=== PATIENT | male | born 1945 | race Caucasian/White ===

== ENCOUNTER 2022-02-10 16:06 | Inpatient (IN) | payer MEDICARE, SELFPAY ==
--- NOTE | ~2022-02-10 | XR_ITS ---
EXAMINATION: XR chest 1V portable INDICATION: Weakness, history of hypertension TECHNIQUE: Portable AP chest at 1926 hours COMPARISON: 11/30/2015 FINDINGS: The lungs are free of acute opacities. No pleural effusion or pneumothorax. Cardiomegaly is noted. Median sternotomy wires are consistent with prior cardiac surgery. Coronary artery stents are noted. IMPRESSION: 1. No acute cardiopulmonary abnormality. Reviewed, dictated and finalized at location F.
--- NOTE | ~2022-02-10 | US_ITS ---
EXAMINATION: US renal BI, US retroperitoneal duplex ltd DATE: 02/14/2022 15:03 INDICATION: Acute renal insufficiency. Hypotension. TECHNIQUE: 1. Multiple grayscale and color Doppler images of the kidneys were obtained. 2. Multiple grayscale and pulsed Doppler images of the aorta and renal arteries were obtained. COMPARISON: None. FINDINGS: Kidneys: The right kidney measures 11.1 x 5.6 x 4.7 cm. The left kidney measures 10.5 x 4.1 x 5.4 cm. The kidn eys demonstrate normal echogenicity. There is no hydronephrosis in either kidney. No stones identifi ed. The bladder appears normal but is partially decompressed which limits evaluation. Renal arteries/vascular: Cardiac arrhythmia with irregular rhythm and bradycardia. The aorta peak systolic velocity is 69 cm/s . The right renal artery peak systolic velocity is 129 cm/s in the proximal segment, 147 cm/s in the mid segment, and 100 cm/s in the distal segment. The left renal artery peak systolic velocity is 113 cm/s in the proximal segment, 103 cm/s in the mid segment, and 91 cm/s in the distal segment. IMPRESSION: 1. Normal kidneys with no hydronephrosis. 2. No Doppler evidence of renal artery stenosis. Reviewed, dictated and finalized at location A. IMPRESSION: 1. Normal kidneys with no hydronephrosis. 2. No Doppler evidence of renal artery stenosis.
[2022-02-10 16:15] VITALS: BP 132/62; PULSE 67; RESP 16; TEMP 37.3; O2SAT 96
--- NOTE | 2022-02-10 19:18 | ECG_ITS ---
Measurements Intervals [place] Rate: 66 P: 64 VA: 179 QRS: 40 QRSD: 90 T: 56 QT: 391 QTc: 410 Interpretive Statements SINUS RHYTHM WITH SINUS ARRHYTHMIA BORDERLINE ST-T WAVE ABNORMALITY- HIGH LATERAL LEADS BASELINE ARTIFACT- I, II, III, AVR, AVL, AVF, V1-V3 BORDERLINE ECG Electronically Signed On 02-10-2022 20:01:26 CDT by Flaco Swain D.O.
[2022-02-10 20:04] LABS: Basophils Percent Auto 0.2 % (0.2-1.2); Eosinophils Percent Auto 0.2 % (0-4.4); Immature Granulocyte Absolute 0.02 K/mm3 (0.00-0.031); Immature Granulocyte Percent A 0.4 % (0-0.5); Immature Platelet Fraction Pct 4.2 % (0.9-11.2); Lymphocytes Absolute Auto 0.55 K/mm3 (0.9-3.2); Lymphocytes Percent Auto 11.1 % (18.3-44.2); Mean Corpuscular HGB Conc 33.3 g/dl (32-36); Mean Corpuscular Hemoglobin 28.2 pg (26-34); Mean Corpuscular Volume 84.7 fl (80-100); Mean Platelet Volume 10.4 fl (7.4-10.4); Monocytes Absolute Auto 0.7 K/mm3 (0.1-0.6); Monocytes Percent Auto 14.5 % (2.6-8.5); Neutrophils Absolute Auto 3.7 K/mm3 (1.3-6.7); Neutrophils Percent Auto 73.6 % (45.5-73.1); Platelet Count Result 124 k/mm3 (150-375); Red Blood Count 4.25 M/mm3 (4.6-6.20); Red Cell Distribution Width 14.2 % (11.5-14.5)
[2022-02-10 20:04] LABS: Appearance Urine Clear (Clear); Bilirubin Urine 1+ (Negative); Blood Urine Trace-lysed (Negative); Color Urine Yellow (Yellow); Glucose Urine UA 2+ mg/dL (Negative); Ketones Urine Trace mg/dL (Negative); Leukocyte Esterase Ur Negative LEU/UL (Negative); Nitrate Urine Negative (Negative); Protein Urine 3+ mg/dL (Negative); Specific Grav Ur >= 1.030 (1.001-1.035); Urobilinogen Urine 0.2 mg/dL (<2.0)
[2022-02-10] MEDS: ONDANSETRON INJ 4 MG/2 ML VIAL IV PUSH (20:12)
[2022-02-10] MEDS: SODIUM CHLORIDE 0.9% IV 1,000 ML 999 ML IV CONT (20:12)
[2022-02-10 20:13] LABS: Lactic Acid Reflex 3.9 mmol/L (0.7-2.0)
[2022-02-10 20:14] LABS: Alanine Aminotransferase 14 U/L (6-50); Albumin Level 4.7 g/dL (3.5-5.1); Alkaline Phosphatase 67 U/L (38-126); Anion Gap 12 mmol/L (8-16); Aspartate Amino Transferase 19 U/L (17-59); Bilirubin,Total 0.8 mg/dL (0.2-1.3); Blood Urea Nitrogen 18 mg/dL (9-20); Calcium 9.9 mg/dL (8.4-10.2); Carbon Dioxide 23 mmol/L (22-30); Chloride 100 mmol/L (98-107); Estimated CRCL calculation 36 ml/min; Estimated Glomerular Filt Rate 49; Glucose 235 mg/dL (65-110); Potassium 4.7 mmol/L (3.4-5.0); Sodium 135 mmol/L (137-145)
[2022-02-10 20:15] VITALS: BP 131/61; PULSE 70; RESP 14; O2SAT 95
[2022-02-10 20:17] LABS: Mucus Urine Rare /lpf; RBC Urine 0-2 /hpf (0-2); WBC Urine 0-3 /hpf
[2022-02-10 20:26] LABS: Troponin I < 0.012 ng/mL (0.000-0.034)
[2022-02-10 20:34] LABS: Add Urine Microscopic? YES
[2022-02-10 20:39] LABS: SARS-CoV-2 RNA PCR Positive
[2022-02-10 20:54] VITALS: BP 127/71; PULSE 64; RESP 18; O2SAT 97
--- NOTE | 2022-02-10 20:55 | ED.WEAKNESS ---
HPI - Weakness General Chief complaint: Weakness Stated complaint: weakness Time Seen by Provider: 02/10/22 19:18 History of Present Illness HPI Narrative: 76-year-old male chronic with history of diabetes and high blood pressure presents here with several days of nausea, vomiting, and generalized weakness, there are multiple members in the house that tested positive for COVID 4 days ago. He is endorsing some chills, no chest pain or difficulty breathing or cough. He has not taken any medications other than what he is prescribed. Some very minimal abdominal pain with nausea but much better now. He is not vaccinated. Related Data Home Medications Medication Instructions Recorded Confirmed famotidine 20 mg tablet 08/08/19 glipizide 10 mg tablet mg 08/08/19 lisinopril 20 mg tablet 08/08/19 metformin 500 mg tablet mg 08/08/19 simvastatin 20 mg tablet mg 08/08/19 Allergies Allergy/AdvReac Type Severity Reaction Status Date / Time No Known Allergies Allergy Unverified 02/10/22 20:10 Review of Systems Review of Systems: CONST: Chills and weakness HEENT: No sore throat C/V: No chest pain RESP: No cough GI: Reports abdominal pain, nausea, vomiting : No dysuria. M/S: No joint pain. SKIN: No rash. NEURO: [No headache or focal numbness or weakness] PSYCH: [No depression] FOR[facility]LY [facility], [facility] Past Medical History Medical History Arthritis Bilateral cataracts CAD (coronary artery disease) Cholelithiasis Diabetes mellitus HLD (hyperlipidemia) HTN (hypertension) Kidney stones Surgical History Surgical History H/O cardiac catheterization H/O colonoscopy History of extraction of renal calculus Hx of CABG Family History Family History Sibling Family history of lung disease, Onset Age: 62 Family history of heart disease in male family member before age 55 Patient's brother is Mother Family history of heart disease in male family member before age 55, Onset Age: 69 Patient's mother is Father Patient's father is Other Diabetes mellitus Social History Social History Smoking status: Never smoker Alcohol intake: current Exam Narrative: EXAMINATION OF ORGAN SYSTEMS/BODY AREAS: Constitutional: Vital signs per nursing GENERAL:[No acute distress, non-toxic appearing.] HEAD: Normal with no signs of head trauma. EYES: EOMI, conjunctiva normal ENT: Hard of hearing LUNGS: Nonlabored breathing. HEART: [Regular rate and rhythm] ABD: [Soft], [nontender to palpation] EXT: Normal range of motion SKIN: [No rashes or lesions.] NEURO: [Alert and oriented x 3. No gross focal sensory or strength deficits.] PSYCH: Normal affect Course Vital Signs Vital signs: Vital Signs Temperature 99.2 F 02/10/22 16:15 Pulse Rate 67 02/10/22 16:15 Respiratory Rate 16 02/10/22 16:15 Blood Pressure 132/62 02/10/22 16:15 Pulse Oximetry 96 02/10/22 16:15 Oxygen Delivery Room Air 02/10/22 16:15 Temperature 99.2 F 02/10/22 16:15 Pulse Rate 64 02/10/22 22:01 Respiratory Rate 18 02/10/22 22:01 Blood Pressure 137/57 L 02/10/22 22:01 Pulse Oximetry 95 02/10/22 22:01 Oxygen Delivery Room Air 02/10/22 16:15 MDM - Weakness MDM Narrative Medical decision making narrative: 76-year-old male presenting with generalized weakness, with multiple sick contacts with COVID, vital signs stable here, exam shows soft nontender abdomen, well-appearing patient with non labored respirations, no focal neurologic deficits, I suspect likely COVID or other infectious etiology, along with possible dehydration, doubt any acute intra-abdominal surgical emergency given his soft and nontender abdomen. Labs notable for elevated lactate, patient started on
--- NOTE | 2022-02-10 21:06 | PM.IMHP ---
H&P: HPI History of Present Illness Date/Time: 02/10/22 21:06 Chief Complaint: Dizziness. Narrative: This is a 76-year-old male with past medical history significant for arthritis, coronary artery disease, diabetes mellitus, dyslipidemia, hypertension. Patient is brought to the emergency room by his son due to dizziness, nausea, vomiting, generalized malaise, muscle aches and pains, for the last 2 days or so. Several members of the family have tested positive for COVID. Patient has not been able to eat all day today, has been staying in bed most of the day as well. Patient was in his usual state of health up until this. Preliminary workup was significant for lactic acid of 3.9, patient tested positive for COVID as well. Patient has been admitted for further evaluation management and treatment. Review of Systems Review of Systems: Body aches and pains, nausea, vomiting, poor appetite, generalized malaise. Constitutional: Constitutional: Reports body ache(s), Reports chills, Reports fever(s), Reports lethargy, Reports malaise, Denies night sweats, Reports poor appetite and Reports weakness Eyes: Eyes: Denies change in vision ENT: Denies dysphagia, Reports dizziness and Denies odynophagia Cardiovascular: Cardiovascular: Denies syncope, Denies pedal edema, Denies irregular heart rhythm, Denies leg ulcers, Denies lightheadedness, Denies radiating jaw, neck or arm pain, Denies palpitations, Denies dyspnea, Denies dyspnea on exertion and Denies paroxysmal nocturnal dyspnea Respiratory: Respiratory: Denies chest congestion, Denies cough, Denies excessive phlegm production and Denies dyspnea Gastrointestinal: Gastrointestinal: Denies abdominal pain, Denies dyspepsia, Denies heartburn, Reports nausea and Reports vomiting Genitourinary: Genitourinary: Denies dysuria Musculoskeletal: Musculoskeletal: Reports myalgias Integumentary/Breasts: Skin/Breast: Denies rash Neurologic: Denies focal weakness and Denies Sensory deficit (Neuro) Psychiatric: Psychiatric: Reports no additional psychiatric complaints and Reports as per HPI Endocrine: Endocrine: Denies cold intolerance, Denies fatigue, Denies flushing, Denies heat intolerance, Denies polyphagia and Denies polydipsia Hematologic/Lymphatic: Hematologic/Lymphatic: Reports no additional hematologic/lymphatic complaints and Reports as per HPI Allergic/Immunologic: Allergic/Immunologic: Reports no additional allergic/immunologic complaints and Reports as per [facility] Past Medical History Medical History (Updated 02/11/22 @ 01:36 by Jorge Gerber MD) Arthritis Bilateral cataracts CAD (coronary artery disease) Cholelithiasis Diabetes mellitus HLD (hyperlipidemia) HTN (hypertension) Kidney stones Surgical History Surgical History H/O cardiac catheterization H/O colonoscopy History of extraction of renal calculus Hx of CABG Family History Family History Sibling Family history of lung disease, Onset Age: 62 Family history of heart disease in male family member before age 55 Patient's brother is Mother Family history of heart disease in male family member before age 55, Onset Age: 69 Patient's mother is Father Patient's father is Other Diabetes mellitus Social History Social History Smoking status: Never smoker Alcohol intake: never Substance use: never Substance use type: does not use Spiritual care concerns: No Meds Home Medications and Allergies Home Medications Medication Instructions Recorded Confirmed Type famotidine 20 mg tablet 08/08/19 History lisinopril 20 mg tablet 08/08/19 History metformin 500 mg tablet mg 08/08/19 History simvastatin 20 mg tablet mg 08/08/19 History aspirin 81 mg tablet 81 mg PO QAM 02/10/22
[2022-02-10 22:01] VITALS: BP 137/57; PULSE 64; RESP 18; O2SAT 95
[2022-02-10] MEDS: LACTATED RINGERS 1,000 ML 999 ML IV CONT (22:38)
[2022-02-10 23:00] LABS: Reflex Lactic Acid Yes or No Add Lactic
--- NOTE | 2022-02-10 23:17 | ADMGEN ---
This patient, Dre Durham, was admitted to 2 Medical Room 260-01. Patient/family oriented to hospital policies and general routines including ID bracelet, bed and alarms, visiting hours, pain management, procedures, bathroom and other care routines, personal items, smoking policy, room service/diet, and visiting hours. Information on how to activate the Rapid Response Team has been discussed. Patient/Family are encouraged to report perceived risks to care and to ask questions if they do not understand what they are told or what they should do.
[2022-02-10 23:28] VITALS: BP 132/60; PULSE 75; RESP 16; TEMP 37.2; O2SAT 98; BMI 23.4
[2022-02-11 00:20] LABS: Lactic Acid 2.2 mmol/L (0.7-2.0)
[2022-02-11 03:41] VITALS: BP 129/53; PULSE 70; RESP 16; TEMP 37.3; O2SAT 93
[2022-02-11 07:45] LABS: Glucose Point of Care 145 mg/dl (65-105)
[2022-02-11] MEDS: OMEGA 3 POLYUNSAT FATTY ACIDS 1 GM CAP PO (09:40)
[2022-02-11] MEDS: ENOXAPARIN 40 MG/0.4 ML SYRINGE SUB-Q (09:41)
[2022-02-11] MEDS: lisinopriL 20 MG TABLET PO (09:41)
[2022-02-11] MEDS: ASPIRIN 81 MG CHEWABLE TABLET PO (09:41)
[2022-02-11] MEDS: FAMOTIDINE 20 MG TABLET PO ×2 (09:41→18:31)
[2022-02-11 11:52] LABS: Glucose Point of Care 235 mg/dl (65-105)
--- NOTE | 2022-02-11 12:00 | P.PNIM_ITS ---
Progress Note: A&P Assessment and Plan (1) COVID-19: Code(s): U07.1 - COVID-19 Status: Acute Assessment and Plan: * Covid positive per labs today * Many sick contacts over the last week * Chest xray shows no acute cardiopulmonary process * Isolation * Trend fluid status * Currently no respiratory symptoms * Place in observation status * Supportive care (2) SANCHO (acute kidney injury): Code(s): N17.9 - Acute kidney failure, unspecified Status: Acute Assessment and Plan: * Current BUN/Cr 18/1.40 * Unknown baseline * Probably related to vomiting * Trend labs * Avoid nephrotoxic medication * IV fluids for hydration given in the ED * Hold off on any further fluids, not wanting to over hydrate (3) Acidosis, lactic: Code(s): E87.2 - Acidosis Status: Acute Assessment and Plan: * Lactic acidosis noted with a lactic acid of 3.9 * Currently 2.2 * LR x 2 in the ED * Probably related to COVID infection, dehydration (4) CAD (coronary artery disease): Code(s): I25.10 - Atherosclerotic heart disease of [place] coronary artery without angina pectoris Status: Acute Assessment and Plan: * Chest pain-free * Continue home meds aspirin, simvastatin (5) HTN (hypertension): Code(s): I10 - Essential (primary) hypertension Status: Acute Assessment and Plan: * Current BP is 129/53 * Continue home meds lisinopril 20mg PO Daily * Trend Blood pressure * adjust therapy as indicated (6) Nausea and vomiting: Code(s): R11.2 - Nausea with vomiting, unspecified Status: Acute Assessment and Plan: * Likely secondary to viral illness * Supportive care (7) Diabetes: Code(s): E11.9 - Type 2 diabetes mellitus without complications Status: Acute Assessment and Plan: * Current glucose is 235 * Check A1c * Trend glucose * Adjust therapy as indicated * accu cheks ac/hs * ISS * hypoglycemic protocol Time Spent With Patient Time with patient: Greater than 35 minutes Subjective Date/time seen: 02/11/22 1200 Interval history: 02/11/221199 Patient was sitting in the chair. Patient stated that he did eat and he feels a lot better today. He is also urinating okay he does say he gets short of breath with walking and goes away slowly however he does not have much distress. He is walking around said he is still using a walker and he is very weak still. He denies any chest pain, nausea, vomiting, diarrhea, constipation, fatigue. Patient also stated that he got COVID vaccinated the however he is unaware of how many shots he got or what shots he got. 02/10/22? 21:06 This is a 76-year-old male with past medical history significant for arthritis, coronary artery disease, diabetes mellitus, dyslipidemia, hypertension.? Patient is brought to the emergency room by his son due to dizziness, nausea, vomiting, generalized malaise, muscle aches and pains, for the last 2 days or so.? Several members of the family have tested positive for COVID.? Patient has not been able to eat all day today, has been staying in bed most of the day as well.? Patient was in his usual state of health up until this.? Preliminary workup was significant for lactic acid of 3.9, patient tested positive for COVID as well.? Patient has been admitted for further evaluation management and t
--- NOTE | 2022-02-11 12:00 | PM.IMPN ---
Progress Note: A&P Assessment and Plan (1) COVID-19: Code(s): U07.1 - COVID-19 Status: Acute Assessment and Plan: Covid positive per labs today Many sick contacts over the last week Chest xray shows no acute cardiopulmonary process Isolation Trend fluid status Currently no respiratory symptoms Place in observation status Supportive care (2) SANCHO (acute kidney injury): Code(s): N17.9 - Acute kidney failure, unspecified Status: Acute Assessment and Plan: Current BUN/Cr 18/1.40 Unknown baseline Probably related to vomiting Trend labs Avoid nephrotoxic medication IV fluids for hydration given in the ED Hold off on any further fluids, not wanting to over hydrate (3) Acidosis, lactic: Code(s): E87.2 - Acidosis Status: Acute Assessment and Plan: Lactic acidosis noted with a lactic acid of 3.9 Currently 2.2 LR x 2 in the ED Probably related to COVID infection, dehydration (4) CAD (coronary artery disease): Code(s): I25.10 - Atherosclerotic heart disease of [place] coronary artery without angina pectoris Status: Acute Assessment and Plan: Chest pain-free Continue home meds aspirin, simvastatin (5) HTN (hypertension): Code(s): I10 - Essential (primary) hypertension Status: Acute Assessment and Plan: Current BP is 129/53 Continue home meds lisinopril 20mg PO Daily Trend Blood pressure adjust therapy as indicated (6) Nausea and vomiting: Code(s): R11.2 - Nausea with vomiting, unspecified Status: Acute Assessment and Plan: Likely secondary to viral illness Supportive care (7) Diabetes: Code(s): E11.9 - Type 2 diabetes mellitus without complications Status: Acute Assessment and Plan: Current glucose is 235 Check A1c Trend glucose Adjust therapy as indicated accu cheks ac/hs ISS hypoglycemic protocol Time Spent With Patient Time with patient: Greater than 35 minutes Subjective Date/time seen: 02/11/22 1200 Interval history: 02/11/22 1200 Patient was sitting in the chair. Patient stated that he did eat and he feels a lot better today. He is also urinating okay he does say he gets short of breath with walking and goes away slowly however he does not have much distress. He is walking around said he is still using a walker and he is very weak still. He denies any chest pain, nausea, vomiting, diarrhea, constipation, fatigue. Patient also stated that he got COVID vaccinated the however he is unaware of how many shots he got or what shots he got. 02/10/22? 21:06 This is a 76-year-old male with past medical history significant for arthritis, coronary artery disease, diabetes mellitus, dyslipidemia, hypertension.? Patient is brought to the emergency room by his son due to dizziness, nausea, vomiting, generalized malaise, muscle aches and pains, for the last 2 days or so.? Several members of the family have tested positive for COVID.? Patient has not been able to eat all day today, has been staying in bed most of the day as well.? Patient was in his usual state of health up until this.? Preliminary workup was significant for lactic acid of 3.9, patient tested positive for COVID as well.? Patient has been admitted for further evaluation management and treatment. Exam Const: General: comfortable, no acute distress, well developed, alert and awake Nutritional Appearance: average body habitus Orientation/consciousness: patient oriented x3 HENMT: Head: normal to inspection, normocephalic and atraumatic Ears: hearing grossly normal bilaterally Face and sinus: normal facial exam Eyes: General: appearance normal, both eyes and all related structures Pupils: Equal, round and reactive pupils present EOM: EOMs intact bilaterally Neck: Neck: full ROM, no lymphadenopathy and no JVD Thyroid: t
[2022-02-11] MEDS: INSULIN ASPART (*BKC) 100 UNITS/ML SUB-Q (12:28)
[2022-02-11 14:00] VITALS: BP 127/53; PULSE 60; RESP 16; TEMP 37.5; O2SAT 95
[2022-02-11 16:32] LABS: Glucose Point of Care 119 mg/dl (65-105)
[2022-02-11] MEDS: CITALOPRAM HYDROBROMIDE 20 MG TABLET PO (18:31)
[2022-02-11] MEDS: SIMVASTATIN 20 MG TABLET PO (18:32)
[2022-02-11 20:14] VITALS: BP 119/56; PULSE 81; RESP 16; TEMP 37.4; O2SAT 97
[2022-02-11 23:51] LABS: Glucose Point of Care 134 mg/dl (65-105)
[2022-02-12 05:38] VITALS: BP 117/57; PULSE 42; RESP 16; TEMP 37.2; O2SAT 99
[2022-02-12 05:51] LABS: Immature Platelet Fraction Pct 4.6 % (0.9-11.2); Mean Corpuscular HGB Conc 34.4 g/dl (32-36); Mean Corpuscular Hemoglobin 28.4 pg (26-34); Mean Corpuscular Volume 82.5 fl (80-100); Platelet Count Result 91 k/mm3 (150-375); Red Blood Count 3.88 M/mm3 (4.6-6.20); Red Cell Distribution Width 13.7 % (11.5-14.5); White Blood Count 3.4 K/mm3 (4.5-10.0)
[2022-02-12 06:04] LABS: Alanine Aminotransferase 9 U/L (6-50); Albumin Level 3.5 g/dL (3.5-5.1); Alkaline Phosphatase 54 U/L (38-126); Anion Gap 2 mmol/L (8-16); Aspartate Amino Transferase 23 U/L (17-59); Bilirubin,Total 0.6 mg/dL (0.2-1.3); Blood Urea Nitrogen 19 mg/dL (9-20); Carbon Dioxide 31 mmol/L (22-30); Chloride 101 mmol/L (98-107); Estimated CRCL calculation 32 ml/min; Estimated Glomerular Filt Rate 42; Glucose 111 mg/dL (65-110); Sodium 134 mmol/L (137-145)
[2022-02-12 07:48] LABS: Glucose Point of Care 120 mg/dl (65-105)
[2022-02-12 08:12] LABS: Band Neutrophils Percent 8 % (0-6); Lymphocytes Absolute Manual 1.22 K/mm3 (1.1-4.5); Monocytes Absolute Manual 0.47 K/mm3 (0.1-0.90); Monocytes Percent Manual 14 % (3-9); Neutrophils Percent Manual 42 % (46-73); Platelet Estimate Decreased (Adequate); Total Cells Counted 100
[2022-02-12] MEDS: FAMOTIDINE 20 MG TABLET PO ×2 (09:22→17:32)
[2022-02-12] MEDS: OMEGA 3 POLYUNSAT FATTY ACIDS 1 GM CAP PO (09:22)
[2022-02-12] MEDS: ASPIRIN 81 MG CHEWABLE TABLET PO (09:22)
[2022-02-12] MEDS: lisinopriL 20 MG TABLET PO (09:22)
[2022-02-12] MEDS: ENOXAPARIN 40 MG/0.4 ML SYRINGE SUB-Q (09:23)
--- NOTE | 2022-02-12 10:18 | P.PNIM_ITS ---
Progress Note: A&P Assessment and Plan (1) COVID-19: Code(s): U07.1 - COVID-19 Status: Acute Assessment and Plan: * Covid positive per labs today * Many sick contacts over the last week * Chest xray shows no acute cardiopulmonary process * Isolation * Trend fluid status * BNP ordered * Currently no respiratory symptoms * Place in observation status * Supportive care (2) SANCHO (acute kidney injury): Code(s): N17.9 - Acute kidney failure, unspecified Status: Acute Assessment and Plan: * Current BUN/Cr 19/1.60, getting worse, labs ordered for further investigation * Unknown baseline * Probably related to vomiting * BNP and urine studies ordered * Wonder if this is fluid overload * Trend labs * Avoid nephrotoxic medication * Hold off on any further fluids, not wanting to over hydrate (3) Thrombocytopenia: Code(s): D69.6 - Thrombocytopenia, unspecified Status: Acute Assessment and Plan: * PLTs at 91 today * 40% drop * Stopped lovenox * HIT labs ordered * Trend labs (4) Acidosis, lactic: Code(s): E87.2 - Acidosis Status: Acute Assessment and Plan: * Lactic acidosis noted with a lactic acid of 3.9 * Currently 2.2 * LR x 2 in the ED * Probably related to COVID infection, dehydration (5) CAD (coronary artery disease): Code(s): I25.10 - Atherosclerotic heart disease of [place] coronary artery without angina pectoris Status: Acute Assessment and Plan: * Chest pain-free * Continue home meds aspirin, simvastatin (6) HTN (hypertension): Code(s): I10 - Essential (primary) hypertension Status: Acute Assessment and Plan: * Current BP is 117/57 * Continue home meds lisinopril 20mg PO Daily * Trend Blood pressure * adjust therapy as indicated (7) Nausea and vomiting: Code(s): R11.2 - Nausea with vomiting, unspecified Status: Acute Assessment and Plan: * Likely secondary to viral illness * Supportive care (8) Diabetes: Code(s): E11.9 - Type 2 diabetes mellitus without complications Status: Acute Assessment and Plan: * Current glucose is 111 * Check A1c * Trend glucose * Adjust therapy as indicated * accu cheks ac/hs * ISS * hypoglycemic protocol Time Spent With Patient Time with patient: Greater than 35 minutes Subjective Date/time seen: 02/12/22 10:18 Interval history: 02/12/22 1015 Patient seems to be doing okay. He denies any shortness of breath or chest pain. However renal function is getting worse and his platelets have dropped to 91. He denies any nausea vomiting, diarrhea, constipation, urgency or frequency. Labs are pending for renal function and possible hit. 02/11/22 1200 Patient was sitting in the chair. Patient stated that he did eat and he feels a lot better today. He is also urinating okay he does say he gets short of breath with walking and goes away slowly however he does not have much distress. He is walking around said he is still using a walker and he is very weak still. He denies any chest pain, nausea, vomiting, diarrhea, constipation, fatigue. Patient also stated that he got COVID vaccinated the however he is unaware of how many shots he got or what shots he got. 02/10/22? 21:06
--- NOTE | 2022-02-12 10:18 | PM.IMPN ---
Progress Note: A&P Assessment and Plan (1) COVID-19: Code(s): U07.1 - COVID-19 Status: Acute Assessment and Plan: Covid positive per labs today Many sick contacts over the last week Chest xray shows no acute cardiopulmonary process Isolation Trend fluid status BNP ordered Currently no respiratory symptoms Place in observation status Supportive care (2) SANCHO (acute kidney injury): Code(s): N17.9 - Acute kidney failure, unspecified Status: Acute Assessment and Plan: Current BUN/Cr 19/1.60, getting worse, labs ordered for further investigation Unknown baseline Probably related to vomiting BNP and urine studies ordered Wonder if this is fluid overload Trend labs Avoid nephrotoxic medication Hold off on any further fluids, not wanting to over hydrate (3) Thrombocytopenia: Code(s): D69.6 - Thrombocytopenia, unspecified Status: Acute Assessment and Plan: PLTs at 91 today 40% drop Stopped lovenox HIT labs ordered Trend labs (4) Acidosis, lactic: Code(s): E87.2 - Acidosis Status: Acute Assessment and Plan: Lactic acidosis noted with a lactic acid of 3.9 Currently 2.2 LR x 2 in the ED Probably related to COVID infection, dehydration (5) CAD (coronary artery disease): Code(s): I25.10 - Atherosclerotic heart disease of [place] coronary artery without angina pectoris Status: Acute Assessment and Plan: Chest pain-free Continue home meds aspirin, simvastatin (6) HTN (hypertension): Code(s): I10 - Essential (primary) hypertension Status: Acute Assessment and Plan: Current BP is 117/57 Continue home meds lisinopril 20mg PO Daily Trend Blood pressure adjust therapy as indicated (7) Nausea and vomiting: Code(s): R11.2 - Nausea with vomiting, unspecified Status: Acute Assessment and Plan: Likely secondary to viral illness Supportive care (8) Diabetes: Code(s): E11.9 - Type 2 diabetes mellitus without complications Status: Acute Assessment and Plan: Current glucose is 111 Check A1c Trend glucose Adjust therapy as indicated accu cheks ac/hs ISS hypoglycemic protocol Time Spent With Patient Time with patient: Greater than 35 minutes Subjective Date/time seen: 02/12/22 10:18 Interval history: 02/12/22 1015 Patient seems to be doing okay. He denies any shortness of breath or chest pain. However renal function is getting worse and his platelets have dropped to 91. He denies any nausea vomiting, diarrhea, constipation, urgency or frequency. Labs are pending for renal function and possible hit. 02/11/22 1200 Patient was sitting in the chair. Patient stated that he did eat and he feels a lot better today. He is also urinating okay he does say he gets short of breath with walking and goes away slowly however he does not have much distress. He is walking around said he is still using a walker and he is very weak still. He denies any chest pain, nausea, vomiting, diarrhea, constipation, fatigue. Patient also stated that he got COVID vaccinated the however he is unaware of how many shots he got or what shots he got. 02/10/22? 21:06 This is a 76-year-old male with past medical history significant for arthritis, coronary artery disease, diabetes mellitus, dyslipidemia, hypertension.? Patient is brought to the emergency room by his son due to dizziness, nausea, vomiting, generalized malaise, muscle aches and pains, for the last 2 days or so.? Several members of the family have tested positive for COVID.? Patient has not been able to eat all day today, has been staying in bed most of the day as well.? Patient was in his usual state of health up until this.? Preliminary workup was significant for lactic acid of 3.9, patient tested positive for COVID as
[2022-02-12 10:51] LABS: Hemoglobin A1C 7.1 % (<5.7)
[2022-02-12 10:58] LABS: NT Pro B Type Natriuretic Pept 800 pg/mL (5-100)
[2022-02-12 11:38] LABS: Glucose Point of Care 190 mg/dl (65-105)
[2022-02-12 12:59] LABS: Creatinine Urine 69.7 mg/dL; Urea Random Urine 320 MG/DL
[2022-02-12 13:04] LABS: Sodium Urine Random 59 meq/L
[2022-02-12] MEDS: FUROSEMIDE INJ 40 MG/4 ML VIAL IV PUSH (13:17)
[2022-02-12 14:00] VITALS: BP 123/68; PULSE 51; RESP 16; TEMP 36.9; O2SAT 95
[2022-02-12 16:47] LABS: Glucose Point of Care 164 mg/dl (65-105)
[2022-02-12] MEDS: CITALOPRAM HYDROBROMIDE 20 MG TABLET PO (17:32)
[2022-02-12] MEDS: SIMVASTATIN 20 MG TABLET PO (17:33)
[2022-02-12 19:34] VITALS: BP 124/61; PULSE 65; RESP 19; TEMP 36.9; O2SAT 100
[2022-02-12 21:48] LABS: Glucose Point of Care 187 mg/dl (65-105)
[2022-02-13 03:52] VITALS: BP 114/46; PULSE 58; RESP 18; TEMP 36.9; O2SAT 97
[2022-02-13 05:49] LABS: Basophils Percent Auto 0.3 % (0.2-1.2); Eosinophils Absolute Auto 0.2 K/mm3 (0-0.3); Eosinophils Percent Auto 4.9 % (0-4.4); Hematocrit 34.1 % (42.0-52.0); Hemoglobin 12.1 g/dL (14.0-18.0); Immature Granulocyte Absolute 0.01 K/mm3 (0.00-0.031); Immature Granulocyte Percent A 0.3 % (0-0.5); Lymphocytes Absolute Auto 1.26 K/mm3 (0.9-3.2); Lymphocytes Percent Auto 41.2 % (18.3-44.2); Mean Corpuscular HGB Conc 35.5 g/dl (32-36); Mean Corpuscular Hemoglobin 28.6 pg (26-34); Mean Corpuscular Volume 80.6 fl (80-100); Mean Platelet Volume 10.5 fl (7.4-10.4); Monocytes Absolute Auto 0.5 K/mm3 (0.1-0.6); Neutrophils Absolute Auto 1.1 K/mm3 (1.3-6.7); Neutrophils Percent Auto 37.3 % (45.5-73.1); Platelet Count Result 100 k/mm3 (150-375); Red Blood Count 4.23 M/mm3 (4.6-6.20); Red Cell Distribution Width 13.6 % (11.5-14.5); White Blood Count 3.1 K/mm3 (4.5-10.0)
[2022-02-13 06:01] LABS: Alanine Aminotransferase 11 U/L (6-50); Albumin Level 3.9 g/dL (3.5-5.1); Alkaline Phosphatase 56 U/L (38-126); Anion Gap 4 mmol/L (8-16); Aspartate Amino Transferase 26 U/L (17-59); Bilirubin,Total 0.7 mg/dL (0.2-1.3); Blood Urea Nitrogen 23 mg/dL (9-20); Calcium 8.8 mg/dL (8.4-10.2); Carbon Dioxide 33 mmol/L (22-30); Chloride 97 mmol/L (98-107); Estimated CRCL calculation 32 ml/min; Estimated Glomerular Filt Rate 42; Glucose 137 mg/dL (65-110); Potassium 3.5 mmol/L (3.4-5.0); Sodium 134 mmol/L (137-145)
[2022-02-13] MEDS: MAGNESIUM SULF 4 GM/WATER100ML 4 GM/100 ML BAG IVPB (07:21)
--- NOTE | 2022-02-13 08:15 | P.PNIM_ITS ---
Progress Note: A&P Assessment and Plan (1) COVID-19: Code(s): U07.1 - COVID-19 Status: Acute Assessment and Plan: * Covid positive per labs today * Many sick contacts over the last week * Chest xray shows no acute cardiopulmonary process * Isolation * Trend fluid status * BNP 800 * Currently no respiratory symptoms * Place in observation status * Supportive care (2) SANCHO (acute kidney injury): Code(s): N17.9 - Acute kidney failure, unspecified Status: Acute Assessment and Plan: * Current BUN/Cr 23/1.60 Remains stable * baseline is truly unknown however taking a look back it does look like he is around 1.2-1.4 * BNP 800 * urine studies sodium of 52, urea 320, creatinine 69.7 * Fena Score is 1.0 * Renal ultrasound ordered to rule out obstruction, does seem to be more hypotensive since admission * IV fluids were given upon admission * Hold lisinopril due to worsening renal failure * Trend labs * Avoid nephrotoxic medication (3) Thrombocytopenia: Code(s): D69.6 - Thrombocytopenia, unspecified Status: Acute Assessment and Plan: * PLTs at 100 today * 40% drop * Stopped lovenox * HIT labs ordered and pending * Trend labs (4) Acidosis, lactic: Code(s): E87.2 - Acidosis Status: Acute Assessment and Plan: * Lactic acidosis noted with a lactic acid of 3.9 * Currently 2.2 * LR x 2 in the ED * Probably related to COVID infection, dehydration (5) CAD (coronary artery disease): Code(s): I25.10 - Atherosclerotic heart disease of [place] coronary artery without angina pectoris Status: Acute Assessment and Plan: * Chest pain-free * Continue home meds aspirin, simvastatin (6) HTN (hypertension): Code(s): I10 - Essential (primary) hypertension Status: Acute Assessment and Plan: * Current BP is 114/46 * Hold lisinopril 20mg PO Daily due to SANCHO * Trend Blood pressure * adjust therapy as indicated (7) Diabetes: Code(s): E11.9 - Type 2 diabetes mellitus without complications Status: Acute Assessment and Plan: * Current glucose is 137 * A1c 7.1 * Trend glucose * Adjust therapy as indicated * accu cheks ac/hs * ISS * hypoglycemic protocol Time Spent With Patient Time with patient: Greater than 35 minutes Subjective Date/time seen: 02/13/22 0815 Interval history: 02/13/22 0815 patient seems to be doing well today. Patient stated that he was eating and he is still very weak however he stated that it is getting better as well. He denies any chest pain, shortness of breath, nausea, vomiting, diarrhea, constipation. He did state that he was having headache and would like some Tylenol. Renal function is about the same however it seems like the patient might have some ATN that is causing his acute kidney injury. Called and updated his son. All questions were answered and plan of care was updated. 02/12/22 1015 Patient seems to be doing okay. He denies any shortness of breath or chest pain. However renal function is getting worse and his platelets have dropped to 91. He denies any nausea vomiting, diarrhea, constipation, urgency or frequency. Labs are pending for renal function and possible hit. 02/11/22 1200 Patient was sitting in the chair. Patient
--- NOTE | 2022-02-13 08:15 | PM.IMPN ---
Progress Note: A&P Assessment and Plan (1) COVID-19: Code(s): U07.1 - COVID-19 Status: Acute Assessment and Plan: Covid positive per labs today Many sick contacts over the last week Chest xray shows no acute cardiopulmonary process Isolation Trend fluid status BNP 800 Currently no respiratory symptoms Place in observation status Supportive care (2) SANCHO (acute kidney injury): Code(s): N17.9 - Acute kidney failure, unspecified Status: Acute Assessment and Plan: Current BUN/Cr 23/1.60 Remains stable baseline is truly unknown however taking a look back it does look like he is around 1.2-1.4 BNP 800 urine studies sodium of 52, urea 320, creatinine 69.7 Fena Score is 1.0 Renal ultrasound ordered to rule out obstruction, does seem to be more hypotensive since admission IV fluids were given upon admission Hold lisinopril due to worsening renal failure Trend labs Avoid nephrotoxic medication (3) Thrombocytopenia: Code(s): D69.6 - Thrombocytopenia, unspecified Status: Acute Assessment and Plan: PLTs at 100 today 40% drop Stopped lovenox HIT labs ordered and pending Trend labs (4) Acidosis, lactic: Code(s): E87.2 - Acidosis Status: Acute Assessment and Plan: Lactic acidosis noted with a lactic acid of 3.9 Currently 2.2 LR x 2 in the ED Probably related to COVID infection, dehydration (5) CAD (coronary artery disease): Code(s): I25.10 - Atherosclerotic heart disease of [place] coronary artery without angina pectoris Status: Acute Assessment and Plan: Chest pain-free Continue home meds aspirin, simvastatin (6) HTN (hypertension): Code(s): I10 - Essential (primary) hypertension Status: Acute Assessment and Plan: Current BP is 114/46 Hold lisinopril 20mg PO Daily due to SANCHO Trend Blood pressure adjust therapy as indicated (7) Diabetes: Code(s): E11.9 - Type 2 diabetes mellitus without complications Status: Acute Assessment and Plan: Current glucose is 137 A1c 7.1 Trend glucose Adjust therapy as indicated accu cheks ac/hs ISS hypoglycemic protocol Time Spent With Patient Time with patient: Greater than 35 minutes Subjective Date/time seen: 02/13/22814 Interval history: 02/13/22814 patient seems to be doing well today. Patient stated that he was eating and he is still very weak however he stated that it is getting better as well. He denies any chest pain, shortness of breath, nausea, vomiting, diarrhea, constipation. He did state that he was having headache and would like some Tylenol. Renal function is about the same however it seems like the patient might have some ATN that is causing his acute kidney injury. Called and updated his son. All questions were answered and plan of care was updated. 02/12/22 1015 Patient seems to be doing okay. He denies any shortness of breath or chest pain. However renal function is getting worse and his platelets have dropped to 91. He denies any nausea vomiting, diarrhea, constipation, urgency or frequency. Labs are pending for renal function and possible hit. 02/11/22 1200 Patient was sitting in the chair. Patient stated that he did eat and he feels a lot better today. He is also urinating okay he does say he gets short of breath with walking and goes away slowly however he does not have much distress. He is walking around said he is still using a walker and he is very weak still. He denies any chest pain, nausea, vomiting, diarrhea, constipation, fatigue. Patient also stated that he got COVID vaccinated the however he is unaware of how many shots he got or what shots he got. 02/10/22? 21:06 This is a 76-year-old male with past medical history significant for arthritis, coronary artery disease, diabetes [place]
[2022-02-13 08:33] LABS: Glucose Point of Care 145 mg/dl (65-105)
[2022-02-13] MEDS: ASPIRIN 81 MG CHEWABLE TABLET PO (09:50)
[2022-02-13] MEDS: FAMOTIDINE 20 MG TABLET PO ×2 (09:50→17:50)
[2022-02-13] MEDS: OMEGA 3 POLYUNSAT FATTY ACIDS 1 GM CAP PO (09:50)
[2022-02-13 11:56] LABS: Glucose Point of Care 288 mg/dl (65-105)
[2022-02-13] MEDS: ACETAMINOPHEN 500 MG TABLET 1000 MG PO (11:59)
[2022-02-13] MEDS: INSULIN ASPART (*BKC) 100 UNITS/ML SUB-Q (12:08)
[2022-02-13 14:00] VITALS: BP 128/56; PULSE 56; RESP 18; TEMP 36.4; O2SAT 97
[2022-02-13 16:34] LABS: Glucose Point of Care 170 mg/dl (65-105)
[2022-02-13] MEDS: CITALOPRAM HYDROBROMIDE 20 MG TABLET PO (17:50)
[2022-02-13] MEDS: SIMVASTATIN 20 MG TABLET PO (17:50)
[2022-02-13 20:22] LABS: Glucose Point of Care 247 mg/dl (65-105)
[2022-02-13 21:08] VITALS: BP 122/55; PULSE 50; RESP 18; TEMP 36.6; O2SAT 99
[2022-02-14 05:04] VITALS: BP 124/51; PULSE 62; RESP 18; TEMP 36.2; O2SAT 99
[2022-02-14 06:23] LABS: Basophils Percent Auto 0.3 % (0.2-1.2); Eosinophils Absolute Auto 0.2 K/mm3 (0-0.3); Eosinophils Percent Auto 6.4 % (0-4.4); Hematocrit 34.2 % (42.0-52.0); Hemoglobin 12.1 g/dL (14.0-18.0); Lymphocytes Absolute Auto 1.09 K/mm3 (0.9-3.2); Lymphocytes Percent Auto 36.7 % (18.3-44.2); Mean Corpuscular HGB Conc 35.4 g/dl (32-36); Mean Corpuscular Hemoglobin 28.7 pg (26-34); Mean Platelet Volume 10.3 fl (7.4-10.4); Monocytes Absolute Auto 0.4 K/mm3 (0.1-0.6); Monocytes Percent Auto 13.8 % (2.6-8.5); Neutrophils Absolute Auto 1.3 K/mm3 (1.3-6.7); Neutrophils Percent Auto 42.8 % (45.5-73.1); Platelet Count Result 109 k/mm3 (150-375); Red Blood Count 4.22 M/mm3 (4.6-6.20); Red Cell Distribution Width 13.6 % (11.5-14.5)
[2022-02-14 06:37] LABS: Alanine Aminotransferase 11 U/L (6-50); Albumin Level 3.7 g/dL (3.5-5.1); Alkaline Phosphatase 66 U/L (38-126); Anion Gap 5 mmol/L (8-16); Aspartate Amino Transferase 22 U/L (17-59); Bilirubin,Total 0.6 mg/dL (0.2-1.3); Blood Urea Nitrogen 28 mg/dL (9-20); Calcium 9.3 mg/dL (8.4-10.2); Carbon Dioxide 33 mmol/L (22-30); Chloride 97 mmol/L (98-107); Estimated CRCL calculation 30 ml/min; Estimated Glomerular Filt Rate 39; Glucose 168 mg/dL (65-110); Magnesium 1.8 mg/dL (1.6-2.3); Potassium 3.9 mmol/L (3.4-5.0); Sodium 135 mmol/L (137-145)
[2022-02-14 08:00] LABS: Glucose Point of Care 171 mg/dl (65-105)
[2022-02-14] MEDS: FAMOTIDINE 20 MG TABLET PO ×2 (09:25→17:03)
[2022-02-14] MEDS: OMEGA 3 POLYUNSAT FATTY ACIDS 1 GM CAP PO (09:26)
[2022-02-14] MEDS: ASPIRIN 81 MG CHEWABLE TABLET PO (09:26)
[2022-02-14] MEDS: LACTATED RINGERS 500 ML 999 ML IV CONT (09:26)
[2022-02-14 12:05] LABS: Glucose Point of Care 190 mg/dl (65-105)
--- NOTE | 2022-02-14 13:15 | PM.IMPN ---
Progress Note: A&P Assessment and Plan (1) COVID-19: Code(s): U07.1 - COVID-19 Status: Acute Assessment and Plan: Covid positive per labs today Many sick contacts over the last week Chest xray shows no acute cardiopulmonary process Isolation Trend fluid status BNP 800 Currently no respiratory symptoms Place in observation status Supportive care (2) SANCHO (acute kidney injury): Code(s): N17.9 - Acute kidney failure, unspecified Status: Acute Assessment and Plan: Current BUN/Cr 28/1.70 Remains stable baseline is truly unknown however taking a look back it does look like he is around 1.2-1.4 BNP 800 Creatnine got better with 500ml bolus and is down to 1.5 LR at 75ML/HR overnight recheck labs in the am urine studies sodium of 52, urea 320, creatinine 69.7 Fena Score is 1.0 Renal ultrasound ordered to rule out obstruction, does seem to be more hypotensive since admission IV fluids were given upon admission Hold lisinopril due to worsening renal failure Trend labs Avoid nephrotoxic medication (3) Thrombocytopenia: Code(s): D69.6 - Thrombocytopenia, unspecified Status: Acute Assessment and Plan: PLTs at 109 today trending up Stopped lovenox HIT labs ordered and pending Trend labs (4) Acidosis, lactic: Code(s): E87.2 - Acidosis Status: Acute Assessment and Plan: Lactic acidosis noted with a lactic acid of 3.9 Currently 2.2 LR x 2 in the ED Probably related to COVID infection, dehydration (5) CAD (coronary artery disease): Code(s): I25.10 - Atherosclerotic heart disease of [place] coronary artery without angina pectoris Status: Acute Assessment and Plan: Chest pain-free Continue home meds aspirin, simvastatin (6) HTN (hypertension): Code(s): I10 - Essential (primary) hypertension Status: Acute Assessment and Plan: Current BP is 124/51 Hold lisinopril 20mg PO Daily due to SANCHO Trend Blood pressure adjust therapy as indicated (7) Diabetes: Code(s): E11.9 - Type 2 diabetes mellitus without complications Status: Acute Assessment and Plan: Current glucose is 168 A1c 7.1 Trend glucose Adjust therapy as indicated accu cheks ac/hs ISS hypoglycemic protocol Time Spent With Patient Time with patient: Greater than 35 minutes Subjective Date/time seen: 02/14/22 13:45 Interval history: 02/14/22 1345 Patient is feeling okay today. However renal function has gotten worse went from 1.6-1.7. Will give patient a fluid bolus. He denies any chest pain, shortness a breath, nausea, vomiting, diarrhea, constipation, weakness or fatigue. I think patient would benefit from fluids overnight. 02/13/22 0815 patient seems to be doing well today. Patient stated that he was eating and he is still very weak however he stated that it is getting better as well. He denies any chest pain, shortness of breath, nausea, vomiting, diarrhea, constipation. He did state that he was having headache and would like some Tylenol. Renal function is about the same however it seems like the patient might have some ATN that is causing his acute kidney injury. Called and updated his son. All questions were answered and plan of care was updated. 02/12/22 1015 Patient seems to be doing okay. He denies any shortness of breath or chest pain. However renal function is getting worse and his platelets have dropped to 91. He denies any nausea vomiting, diarrhea, constipation, urgency or frequency. Labs are pending for renal function and possible hit. 02/11/22 1200 Patient was sitting in the chair. Patient stated that he did eat and he feels a lot better today. He is also urinating okay he does say he gets short of breath with walking and goes away slowly however he does not have much distress. H
--- NOTE | 2022-02-14 13:15 | P.PNIM_ITS ---
Progress Note: A&P Assessment and Plan (1) COVID-19: Code(s): U07.1 - COVID-19 Status: Acute Assessment and Plan: * Covid positive per labs today * Many sick contacts over the last week * Chest xray shows no acute cardiopulmonary process * Isolation * Trend fluid status * BNP 800 * Currently no respiratory symptoms * Place in observation status * Supportive care (2) SANCHO (acute kidney injury): Code(s): N17.9 - Acute kidney failure, unspecified Status: Acute Assessment and Plan: * Current BUN/Cr 28/1.70 Remains stable * baseline is truly unknown however taking a look back it does look like he is around 1.2-1.4 * BNP 800 * Creatnine got better with 500ml bolus and is down to 1.5 * LR at 75ML/HR overnight recheck labs in the am * urine studies sodium of 52, urea 320, creatinine 69.7 * Fena Score is 1.0 * Renal ultrasound ordered to rule out obstruction, does seem to be more hypotensive since admission * IV fluids were given upon admission * Hold lisinopril due to worsening renal failure * Trend labs * Avoid nephrotoxic medication (3) Thrombocytopenia: Code(s): D69.6 - Thrombocytopenia, unspecified Status: Acute Assessment and Plan: * PLTs at 109 today * trending up * Stopped lovenox * HIT labs ordered and pending * Trend labs (4) Acidosis, lactic: Code(s): E87.2 - Acidosis Status: Acute Assessment and Plan: * Lactic acidosis noted with a lactic acid of 3.9 * Currently 2.2 * LR x 2 in the ED * Probably related to COVID infection, dehydration (5) CAD (coronary artery disease): Code(s): I25.10 - Atherosclerotic heart disease of [place] coronary artery without angina pectoris Status: Acute Assessment and Plan: * Chest pain-free * Continue home meds aspirin, simvastatin (6) HTN (hypertension): Code(s): I10 - Essential (primary) hypertension Status: Acute Assessment and Plan: * Current BP is 124/51 * Hold lisinopril 20mg PO Daily due to SANCHO * Trend Blood pressure * adjust therapy as indicated (7) Diabetes: Code(s): E11.9 - Type 2 diabetes mellitus without complications Status: Acute Assessment and Plan: * Current glucose is 168 * A1c 7.1 * Trend glucose * Adjust therapy as indicated * accu cheks ac/hs * ISS * hypoglycemic protocol Time Spent With Patient Time with patient: Greater than 35 minutes Subjective Date/time seen: 02/14/22 13:45 Interval history: 02/14/22 1345 Patient is feeling okay today. However renal function has gotten worse went from 1.6-1.7. Will give patient a fluid bolus. He denies any chest pain, shortness a breath, nausea, vomiting, diarrhea, constipation, weakness or fatigue. I think patient would benefit from fluids overnight. 02/13/22 0815 patient seems to be doing well today. Patient stated that he was eating and he is still very weak however he stated that it is getting better as well. He denies any chest pain, shortness of breath, nausea, vomiting, diarrhea, constipation. He did state that he was having headache and would like some Tylenol. Renal function is about the same however it seems like the patient might have some ATN that is causing his acute kidney injury. Called and updated his son. All questions were answe
[2022-02-14 13:25] LABS: Albumin Level 3.4 g/dL (3.5-5.1); Anion Gap 2 mmol/L (8-16); Blood Urea Nitrogen 27 mg/dL (9-20); Carbon Dioxide 34 mmol/L (22-30); Chloride 97 mmol/L (98-107); Estimated CRCL calculation 34 ml/min; Estimated Glomerular Filt Rate 45; Glucose 191 mg/dL (65-110); Phosphorus 2.7 mg/dL (2.5-4.5); Potassium 4.3 mmol/L (3.4-5.0); Sodium 133 mmol/L (137-145)
[2022-02-14] MEDS: LACTATED RINGERS 1,000 ML 75 ML IV CONT (14:56)
[2022-02-14 15:10] VITALS: BP 121/85; PULSE 62; RESP 16; TEMP 36.8; O2SAT 100
[2022-02-14 16:48] LABS: Glucose Point of Care 170 mg/dl (65-105)
[2022-02-14] MEDS: SIMVASTATIN 20 MG TABLET PO (17:03)
[2022-02-14] MEDS: CITALOPRAM HYDROBROMIDE 20 MG TABLET PO (17:03)
[2022-02-14 17:12] LABS: Heparin Induced Platelet Antib Negative (Negative)
[2022-02-14 20:58] VITALS: BP 141/57; PULSE 63; RESP 20; TEMP 37.1; O2SAT 100
[2022-02-14 21:08] LABS: Glucose Point of Care 259 mg/dl (65-105)
[2022-02-15 03:57] VITALS: BP 119/52; PULSE 56; RESP 18; TEMP 37; O2SAT 96
[2022-02-15 06:22] LABS: Basophils Percent Auto 0.4 % (0.2-1.2); Eosinophils Absolute Auto 0.1 K/mm3 (0-0.3); Eosinophils Percent Auto 2.5 % (0-4.4); Hematocrit 30.9 % (42.0-52.0); Hemoglobin 10.8 g/dL (14.0-18.0); Immature Platelet Fraction Pct 4.9 % (0.9-11.2); Lymphocytes Absolute Auto 0.73 K/mm3 (0.9-3.2); Lymphocytes Percent Auto 26.1 % (18.3-44.2); Mean Corpuscular Volume 83.1 fl (80-100); Mean Platelet Volume 10.8 fl (7.4-10.4); Monocytes Absolute Auto 0.4 K/mm3 (0.1-0.6); Monocytes Percent Auto 14.6 % (2.6-8.5); Neutrophils Absolute Auto 1.6 K/mm3 (1.3-6.7); Neutrophils Percent Auto 56.4 % (45.5-73.1); Platelet Count Result 95 k/mm3 (150-375); Red Blood Count 3.72 M/mm3 (4.6-6.20); Red Cell Distribution Width 13.3 % (11.5-14.5); White Blood Count 2.8 K/mm3 (4.5-10.0)
[2022-02-15 06:53] LABS: Alanine Aminotransferase 10 U/L (6-50); Albumin Level 3.5 g/dL (3.5-5.1); Alkaline Phosphatase 59 U/L (38-126); Anion Gap 3 mmol/L (8-16); Aspartate Amino Transferase 21 U/L (17-59); Bilirubin,Total 0.6 mg/dL (0.2-1.3); Blood Urea Nitrogen 24 mg/dL (9-20); Calcium 8.9 mg/dL (8.4-10.2); Carbon Dioxide 31 mmol/L (22-30); Chloride 99 mmol/L (98-107); Estimated CRCL calculation 34 ml/min; Estimated Glomerular Filt Rate 45; Glucose 131 mg/dL (65-110); Magnesium 1.4 mg/dL (1.6-2.3); Potassium 4.1 mmol/L (3.4-5.0); Sodium 133 mmol/L (137-145)
[2022-02-15 07:43] LABS: Glucose Point of Care 127 mg/dl (65-105)
[2022-02-15] MEDS: ASPIRIN 81 MG CHEWABLE TABLET PO (09:06)
[2022-02-15] MEDS: FAMOTIDINE 20 MG TABLET PO (09:07)
[2022-02-15] MEDS: OMEGA 3 POLYUNSAT FATTY ACIDS 1 GM CAP PO (09:07)
[2022-02-15 10:09] LABS: Osmolality, Urine 296 mOsm/kg (50-1200)
--- NOTE | 2022-02-15 10:15 | P.DS_ITS ---
DS: Admitting Diagnosis Discharge Date 02/15/22 1015 Admitting Diagnosis COVID-19/SANCHO DS: Discharge Diagnosis Discharge Diagnosis (1) COVID-19: Code(s): U07.1 - COVID-19 Status: Acute Assessment and Plan: * Covid positive per labs today * Many sick contacts over the last week * Chest xray shows no acute cardiopulmonary process * Isolation * Trend fluid status * BNP 800 * Currently no respiratory symptoms * Place in observation status * Supportive care (2) SANCHO (acute kidney injury): Code(s): N17.9 - Acute kidney failure, unspecified Status: Acute Assessment and Plan: * Current BUN/Cr 24/1.50 Remains stable * baseline is truly unknown however taking a look back it does look like he is around 1.2-1.4 * BNP 800 * urine studies sodium of 52, urea 320, creatinine 69.7 * Fena Score is 1.0 * Renal ultrasound ordered to rule out obstruction, does seem to be more hypotensive since admission * IV fluids were given upon admission * Hydration was given throughout the night * Hold lisinopril due to worsening renal failure * Trend labs * Avoid nephrotoxic medication (3) Thrombocytopenia: Code(s): D69.6 - Thrombocytopenia, unspecified Status: Acute Assessment and Plan: * PLTs at 95 today * 40% drop * Stopped lovenox * HIT labs ordered and pending * Trend labs (4) Acidosis, lactic: Code(s): E87.2 - Acidosis Status: Acute Assessment and Plan: * Lactic acidosis noted with a lactic acid of 3.9 * Currently 2.2 * LR x 2 in the ED * Probably related to COVID infection, dehydration (5) CAD (coronary artery disease): Code(s): I25.10 - Atherosclerotic heart disease of [place] coronary artery without angina pectoris Status: Acute Assessment and Plan: * Chest pain-free * Continue home meds aspirin, simvastatin (6) HTN (hypertension): Code(s): I10 - Essential (primary) hypertension Status: Acute Assessment and Plan: * Current BP is 114/46 * Hold lisinopril 20mg PO Daily due to SANCHO * Trend Blood pressure * adjust therapy as indicated (7) Diabetes: Code(s): E11.9 - Type 2 diabetes mellitus without complications Status: Acute Assessment and Plan: * Current glucose is 137 * A1c 7.1 * Trend glucose * Adjust therapy as indicated * accu cheks ac/hs * ISS * hypoglycemic protocol (8) Hypomagnesemia: Code(s): E83.42 - Hypomagnesemia Status: Acute Assessment and Plan: * MG 1.4 * Replaced with 4g bag * Trend labs * Replaced as indicated DS: Summary Hospital Course Hospital Course: Patient is a 76-year-old male with a past medical history arthritis, CAD, diabetes, hypertension, hyperlipidemia who came to the ED due to increased weakness, dizziness, nausea, vomiting, decreased appetite for 2 days. Patient tested positive for COVID and has been around a lot of family members who were also positive for COVID. Upon arrival it was noted that the patient did have a elevated lactic acid of 3.9. Patient was given LR x2 L and lactic came down to 2.2. Patient did not have any respiratory symptoms and chest x-ray did not show any acute cardiopulmonary processes. Patient did exhibit an SANCHO as he came in with a creatinine of 1.40 and [place]
--- NOTE | 2022-02-15 10:15 | PM.DS ---
DS: Admitting Diagnosis Discharge Date 02/15/22 1015 Admitting Diagnosis COVID-19/SANCHO DS: Discharge Diagnosis Discharge Diagnosis (1) COVID-19: Code(s): U07.1 - COVID-19 Status: Acute Assessment and Plan: Covid positive per labs today Many sick contacts over the last week Chest xray shows no acute cardiopulmonary process Isolation Trend fluid status BNP 800 Currently no respiratory symptoms Place in observation status Supportive care (2) SANCHO (acute kidney injury): Code(s): N17.9 - Acute kidney failure, unspecified Status: Acute Assessment and Plan: Current BUN/Cr 24/1.50 Remains stable baseline is truly unknown however taking a look back it does look like he is around 1.2-1.4 BNP 800 urine studies sodium of 52, urea 320, creatinine 69.7 Fena Score is 1.0 Renal ultrasound ordered to rule out obstruction, does seem to be more hypotensive since admission IV fluids were given upon admission Hydration was given throughout the night Hold lisinopril due to worsening renal failure Trend labs Avoid nephrotoxic medication (3) Thrombocytopenia: Code(s): D69.6 - Thrombocytopenia, unspecified Status: Acute Assessment and Plan: PLTs at 95 today 40% drop Stopped lovenox HIT labs ordered and pending Trend labs (4) Acidosis, lactic: Code(s): E87.2 - Acidosis Status: Acute Assessment and Plan: Lactic acidosis noted with a lactic acid of 3.9 Currently 2.2 LR x 2 in the ED Probably related to COVID infection, dehydration (5) CAD (coronary artery disease): Code(s): I25.10 - Atherosclerotic heart disease of [place] coronary artery without angina pectoris Status: Acute Assessment and Plan: Chest pain-free Continue home meds aspirin, simvastatin (6) HTN (hypertension): Code(s): I10 - Essential (primary) hypertension Status: Acute Assessment and Plan: Current BP is 114/46 Hold lisinopril 20mg PO Daily due to SANCHO Trend Blood pressure adjust therapy as indicated (7) Diabetes: Code(s): E11.9 - Type 2 diabetes mellitus without complications Status: Acute Assessment and Plan: Current glucose is 137 A1c 7.1 Trend glucose Adjust therapy as indicated accu cheks ac/hs ISS hypoglycemic protocol (8) Hypomagnesemia: Code(s): E83.42 - Hypomagnesemia Status: Acute Assessment and Plan: MG 1.4 Replaced with 4g bag Trend labs Replaced as indicated DS: Summary Hospital Course Hospital Course: Patient is a 76-year-old male with a past medical history arthritis, CAD, diabetes, hypertension, hyperlipidemia who came to the ED due to increased weakness, dizziness, nausea, vomiting, decreased appetite for 2 days. Patient tested positive for COVID and has been around a lot of family members who were also positive for COVID. Upon arrival it was noted that the patient did have a elevated lactic acid of 3.9. Patient was given LR x2 L and lactic came down to 2.2. Patient did not have any respiratory symptoms and chest x-ray did not show any acute cardiopulmonary processes. Patient did exhibit an SANCHO as he came in with a creatinine of 1.40 and has been elevated to 1.6. Urine studies did indicate that he most likely has ATN. Patient was given 1 dose of Lasix due to BNP of 800. Patient is also been work with PT and OT and has also been able to eat a full tray with no issues. Patient was also noted to have some thrombocytopenia probably related to the Lovenox injections. Heparin was discontinued and platelets have been trending up. Patient Denies any chest pain, shortness of breath, nausea, vomiting, diarrhea, constipation, weakness or fatigue. Patient did state that he has some chronic aches and pains which he just takes Tylenol at home. Patient is stable for dischar
[2022-02-15] MEDS: MAGNESIUM SULF 4 GM/WATER100ML 4 GM/100 ML BAG IVPB (10:30)
[2022-02-15 11:22] LABS: Heparin, Anti-XA <0.20 IU/mL
== END 2022-02-15 12:05 | disposition home or self-care (01) | DRG 178 ==
LOC: ANHED 21:24 → ANH2MED 22:25
PROVIDERS: Admitting Provider Internal Medicine; Emergency Provider Emergency Medicine; PCP Family Medicine; Visit Provider Nurse Practitioner
DX: U07.1 COVID-19 (principal); E87.2 Acidosis; N17.9 Acute kidney failure, unspecified; D69.6 Thrombocytopenia, unspecified; I25.10 Atherosclerotic heart disease of native coronary artery without angina pectoris; E86.0 Dehydration; I10 Essential (primary) hypertension; E83.42 Hypomagnesemia; E11.9 Type 2 diabetes mellitus without complications; E78.5 Hyperlipidemia, unspecified; M19.90 Unspecified osteoarthritis, unspecified site; Z87.442 Personal history of urinary calculi; Z95.1 Presence of aortocoronary bypass graft
CPT/HCPCS: 36415; 71045; 76775; 80053; 80069; 81001; 82570; 82948; 83036; 83605; 83735; 83880; 83935; 84300; 84484; 84540; 85025; 85055; 85520; 86022; 93005; 93976; 96361; 96365; 96372; 96374; 96375; 97161; 97165; 99285; A9270; C9803; G0378; J1650; J1815; J1940; J2405; J3475; J7030; J7120; U0003; U0005

== ENCOUNTER 2022-02-23 20:43 | Emergency (ER) | payer MEDICARE, SELFPAY ==
--- NOTE | ~2022-02-23 | CT_ITS ---
EXAMINATION: CT brain wo con DATE: 02/23/2022 21:14 INDICATION: Status post fall. Trauma to the head. Patient on blood thinners. TECHNIQUE: Computed tomography (CT) of the head was performed without intravenous contrast. The dose- length product was 605.33 mGy-cm. Automated exposure control and iterative reconstruction technique w ere employed. COMPARISON: CT dated 08/08/2019 FINDINGS: Mild generalized atrophy. There are scattered mild periventricular and subcortical white ma tter changes, most likely related to small vessel ischemic disease (microangiopathy). No ventriculome mikey or midline shift. Basilar cisterns are patent. No acute intracranial hemorrhage, infarction, mas s or mass effect. Small air-fluid level right maxillary sinus. Mastoids are pneumatized. IMPRESSION: 1. No acute intracranial abnormality. 2: Chronic age-related findings. Reviewed, dictated and finalized at location A.
--- NOTE | ~2022-02-23 | CT_ITS ---
EXAMINATION: CT cervical spine wo con DATE: 02/23/2022 21:14 INDICATION: Neck pain after fall. TECHNIQUE: Computed tomography (CT) of the cervical spine was performed without intravenous contrast. The dose-length product was 217 mGy-cm. Automated exposure control and iterative reconstruction tech [employer]: Words on [employer] were employed. COMPARISON: CT dated 08/08/2019 FINDINGS: There is degenerative disc disease at C5-6, C6-7 and C7-T1. There is mild multilevel uncina te and facet hypertrophy. Odontoid process is normal. Craniovertebral junction within normal limits. No evidence for perched facet. There are multiple subcutaneous nodules of the left neck posteriorly w hich are unchanged, possibly sebaceous cysts. There is emphysema of the lung apices. No acute fracture or traumatic malalignment. IMPRESSION: 1. No acute abnormality of the cervical spine. Reviewed, dictated and finalized at location A.
[2022-02-23 20:43] VITALS: BP 182/67; PULSE 112; RESP 18; TEMP 36.4; O2SAT 99
--- NOTE | 2022-02-23 20:55 | ED.FALL ---
HPI - Fall General Chief Complaint: Fall Stated Complaint: FALL WITH HEAD INJURY History of Present Illness HPI Narrative: 76-year-old male presents the emergency room for evaluation of a head injury. Patient states he was in his driveway shooting baskets, when he slipped and fell falling backwards and striking his head on the concrete. Patient denies any altered mental status or loss of consciousness. Patient states he was nauseated and threw up once. Presently patient is alert and oriented x3, denies any nausea or vomiting, dizziness or headache. Related Data Home Medications Medication Instructions Recorded Confirmed famotidine 20 mg tablet 20 mg PO BID 08/08/19 02/11/22 lisinopril 20 mg tablet 20 mg PO QAM 08/08/19 02/11/22 metformin 500 mg tablet 1,000 mg PO BID 08/08/19 02/11/22 simvastatin 20 mg tablet 20 mg PO QPM 08/08/19 02/11/22 aspirin 81 mg tablet 81 mg PO QAM 02/10/22 02/11/22 citalopram 20 mg tablet 20 mg PO QPM 02/10/22 02/11/22 Allergies Allergy/AdvReac Type Severity Reaction Status Date / Time No Known Allergies Allergy Verified 02/23/22 20:50 Review of Systems Review of Systems: CONSTITUTIONAL: Denies fever, chills, or sweats. EYES: Denies visual changes, redness, or discharge. ENT: Denies rhinorrhea, congestion, sore throat, or otalgia. CARDIOVASCULAR: Denies chest pain, palpitations, or edema. RESPIRATORY: Denies cough or dyspnea. GASTROINTESTINAL: Denies abdominal pain, nausea, vomiting, or diarrhea. GENITOURINARY: Denies dysuria or hematuria. SKIN: Denies rash or itching. MUSCULOSKELETAL: Denies back pain, joint pain, or myalgia. NEUROLOGIC: Denies headache, numbness, dizziness, or weakness. PSYCHIATRIC: Denies anxiety or depression. [facility] Past Medical History Medical History Arthritis Bilateral cataracts CAD (coronary artery disease) Cholelithiasis Diabetes mellitus HLD (hyperlipidemia) HTN (hypertension) Kidney stones Surgical History Surgical History H/O cardiac catheterization H/O colonoscopy History of extraction of renal calculus Hx of CABG Family History Family History Sibling Family history of lung disease, Onset Age: 62 Family history of heart disease in male family member before age 55 Patient's brother is Mother Family history of heart disease in male family member before age 55, Onset Age: 69 Patient's mother is Father Patient's father is Other Diabetes mellitus Social History Social History Smoking status: Never smoker Alcohol intake: never Substance use: never Substance use type: does not use Spiritual care concerns: No Exam Narrative: GENERAL: Well-appearing, well-nourished, no physical limitations, and in no acute distress. HEAD: Normocephalic, atraumatic. EYES: Conjunctivae normal, PERRLA and EOMI. ENT: External nose normal, Nares clear, no rhinorrhea or epistaxis. Mucous membranes moist. Oropharynx without tonsillar hypertrophy exudate or other lesions. External ears normal, bilateral TMs normal bilaterally NECK: Supple. No meningeal signs. No adenopathy or masses. No carotid bruits or JVD CHEST: Clear to auscultation. No respiratory distress. No wheezes rales or rhonchi. No tenderness. HEART: Regular rate and rhythm. No murmur heard. Normal peripheral pulses. BACK: No cervical tenderness, step-offs, bony abnormality; FROM EXTREMITIES: Normal range of motion. No edema. No clubbing or cyanosis SKIN: Abrasion noted to the posterior scalp NEURO: No focal deficits. Alert and oriented x3. MAEW. CN's II-XI intact bilaterally, normal gait PSYCH: Cooperative. Normal mood and affect. Course Vital Signs Vital signs: Vital Signs Temperature 36.4 C 02/10
[2022-02-23 22:16] VITALS: BP 138/72; PULSE 98; RESP 18; O2SAT 99
== END 2022-02-23 22:17 | disposition home or self-care (01) ==
PROVIDERS: Emergency Provider Nurse Practitioner Family; PCP Family Medicine
DX: S09.90XA Unspecified injury of head, initial encounter (principal); E11.9 Type 2 diabetes mellitus without complications; I25.10 Atherosclerotic heart disease of native coronary artery without angina pectoris; E78.5 Hyperlipidemia, unspecified; I10 Essential (primary) hypertension; M19.90 Unspecified osteoarthritis, unspecified site; Z95.1 Presence of aortocoronary bypass graft; Z87.442 Personal history of urinary calculi; Z79.82 Long term (current) use of aspirin; Z79.84 Long term (current) use of oral hypoglycemic drugs; W01.0XXA Fall on same level from slipping, tripping and stumbling without subsequent striking against object, initial encounter
CPT/HCPCS: 70450; 72125; 99284

== ENCOUNTER 2022-08-16 12:14 | Outpatient (RCR) | payer MEDICARE, SELFPAY ==
--- NOTE | 2022-08-16 14:35 | PTOPEVDC ---
Assessment and note entered by Kirk Medina, PT Thank you for referring Dre Durham to [facility].? An evaluation has been completed. No further treatment is needed. Evaluation Information Assessment Status Evaluation Diagnosis weakness Onset seasonal Subjective Information Patient reports that every winter he gets weak and then better during the summer, with some elaboration it sounds like he does not like cold weather so in the summer he is very active and walks around the neighborhood and works out in the yard and in the winter he is just in his little apartment because he does not want to fall and be out in the cold. Reported Pain Level Pain Score 2: Self Report Additional Pain Score Comments reports arthritis in the back mainly, but also reports in the neck and L knee, feels better after he starts moving. Assessment PT Clinical Summary Dre is a 76 year old male coming into the clinic today with a self reported issue of seasonal weakness. The patient presents with normal strength in his UE and grossly 4-to 4/5 CHAMP le Strength with the hips and ankle evertors being the 4-/5. Patient also reports decreased sensation up to his knees in CHAMP LE's which I would attribute to his walking issues more than his CHAMP LE weakness. Patient interested in a rollator also which I told him he would need to talk to his doctor about. Patient did not want to come to therapy secondary to his copay and wanted a HEP which he was given. Discharged from outpatient skilled therapy. May do better with home health if he is not leaving his home like he claims and should not be a copay for to work on balance. Plan of Care PT Services Indicated No Treatment Frequency and discharged from outpatient physical therapy. Duration
== END 2022-08-16 15:01 | disposition home or self-care (01) ==
LOC: ANHPT 12:14
PROVIDERS: PCP Family Medicine; Visit Provider Nurse Practitioner Adult Health
DX: R53.1 Weakness (principal); R53.83 Other fatigue
CPT/HCPCS: 97110; 97161

== ENCOUNTER 2024-10-10 14:14 | Outpatient (CLI) | payer MEDICARE, SELFPAY | END 2024-10-10 14:15 | disposition home or self-care (01) | PROVIDERS: PCP Family Medicine; Visit Provider Registered Nurse | DX: M17.0 Bilateral primary osteoarthritis of knee (principal) | CPT/HCPCS: 73562 ==

== ENCOUNTER 2024-10-24 11:15 | Outpatient (RCR) | payer MEDICARE, SELFPAY ==
--- NOTE | 2024-09-25 11:02 | PCPTNOTE ---
pt did not show for today's PT evaluation appt.
--- NOTE | 2024-10-06 14:03 | OPREHPOC ---
Outpatient Therapy Plan of Care This is a Multidisciplinary Plan of Care that may contain components documented by all disciplines (PT, OT, and ST.) PT Problem 1 PT Problem #1 Knowledge Deficit PT Goal 1 Goal / Goal Update Heth with HEP Target Visit 4 PT Goal 2 Goal / Goal Update Report no pain greater than 2/10 for 2 consecutive weeks Target Visit 8 PT Problem 2 PT Problem #2 Impaired Range of Motion PT Goal 1 Goal / Goal Update 1. Improve bandar hip abduction to 40 degrees to improve capsular mobility to reduce lumbar spine stress 2. Demonstrate 10 degrees bandar ankle dorsiflexion to improve terminal stance of gait and stride length Target Visit 8 PT Problem 3 PT Problem #3 Impaired Strength PT Goal 1 Goal / Goal Update 1. Improve bandar hip flexion strength to 4+/5 to improve foot clearance 2. Improve bandra hip abduction strength to 4/5 to improve lateral stability with gait and transfers Target Visit 8
--- NOTE | 2024-10-06 14:03 | PTOPEVAL1 ---
Assessment and note entered by Jorge Perera, PT Evaluation Information Assessment Status Evaluation Diagnosis M79.604, M25.569 ICD-10 Condition Codes (PT) Pain in low back M54.50 Onset 5+ years Subjective Information Reports that he has been having back and knee pain for a few years. He will occasionally use a walking stick for balance. He has not had a fall in the past year but had a few prior to that and is now very careful. Gets pain all the way down to feet bilaterally. Occasionally gets pain in the legs when sleeping. Twisting of the spine and rolling over in bed are difficult. Reports that he is always in pain. If he does not stretch and do exercise it is worse. His biggest concern is walking, balance, and endurance. Reported Pain Level Pain Score 5: Self Report Assessment PT Clinical Summary Patient presents with signs and symptoms consistent with lumbar stenosis and reciprocal bandar leg radiculopathy. Patient showing poor hip mobility and weakness. WIll be improved through skilled therapy to address measured deficits and improve flexibility, balance, and LE endurance. Plan of Care Interventions Gait Training,Hot Pack/Cold Pack,Manual Therapy, Neuro Re-education,Therapeutic Activities, Therapeutic Exercise PT Services Indicated Yes Treatment Frequency and 2x/week for 8 visits Duration These treatments will address the objective and functional deficits as defined above. The patient will be advanced safely and appropriately in order for the patient to progress towards his/her prior level of function. Additional exercises will be introduced and as well as a comprehensive home exercise program upon discharge, if needed, ?to ensure carryover of functional gains achieved in the clinic. This treatment plan has been reviewed and agreement upon by the patient.
--- NOTE | 2024-10-31 12:59 | OPREHPOC ---
Outpatient Therapy Plan of Care This is a Multidisciplinary Plan of Care that may contain components documented by all disciplines (PT, OT, and ST.) PT Problem 1 PT Problem #1 Knowledge Deficit PT Goal 1 Goal / Goal Update [place] with HEP Target Visit 4 PT Goal 2 Goal / Goal Update Report no pain greater than 2/10 for 2 consecutive weeks Target Visit 8 PT Problem 2 PT Problem #2 Impaired Range of Motion PT Goal 1 Goal / Goal Update 1. Improve bandar hip abduction to 40 degrees to improve capsular mobility to reduce lumbar spine stress 2. Demonstrate 10 degrees bandar ankle dorsiflexion to improve terminal stance of gait and stride length Target Visit 8 PT Problem 3 PT Problem #3 Impaired Strength PT Goal 1 Goal / Goal Update 1. Improve bandar hip flexion strength to 4+/5 to improve foot clearance 2. Improve bandar hip abduction strength to 4/5 to improve lateral stability with gait and transfers Target Visit 8
--- NOTE | 2024-10-31 13:00 | PCPTNOTE ---
pt did not show for today's reeval appt.
--- NOTE | 2024-11-12 11:58 | PTOPDC ---
Assessment and note entered by Tressa Mendez, PT Assessment Status Discharge - Pt Not Present Diagnosis M79.604, M25.569 ICD-10 Condition Codes (PT) Pain in low back M54.50 Onset 5+ years Subjective Information pt was not seen this date Assessment PT Clinical Summary Dre has received 3 PT sessions, from Sep 25 to October 24. He then stopped attending therapy. Discharge PT. The goals were not addressed. Plan of Care PT Services Indicated No
== END 2024-11-12 14:30 | disposition home or self-care (01) ==
LOC: ANHPT 11:15
PROVIDERS: PCP Family Medicine
DX: M79.604 Pain in right leg (principal); M79.662 Pain in left lower leg; M25.569 Pain in unspecified knee
CPT/HCPCS: 97110; 97140; 97161; 97530

== ENCOUNTER 2025-01-12 15:18 | Outpatient (CLI) | payer MEDICARE, SELFPAY ==
--- NOTE | ~2025-01-12 | XR_ITS ---
EXAM: XR knee LT min 4V DATE: 01/12/2025 16:15 HISTORY: Rt and Lt knee pain . COMPARISON: 10/10/2024. FINDINGS: Normal mineralization. No fracture or dislocation. No lytic or blastic lesion. Mild medial joint space narrowing. Mild patellofemoral osteophytosis. Stable sclerotic lesion in the proximal ti farida, presumed bone island. No erosion or periosteal change. Vascular calcifications. Small volume zaki nt fluid. IMPRESSION: Mild left knee osteoarthritis. Small left knee joint effusion. Reviewed, dictated and finalized at location K.
--- NOTE | ~2025-01-12 | XR_ITS ---
EXAM: XR knee RT min 4V DATE: 01/12/2025 16:15 HISTORY: Rt and Lt knee pain . COMPARISON: 10/02/2024. FINDINGS: Normal mineralization. No fracture or dislocation. No lytic or blastic lesion. Mild medial joint space narrowing. Mild patellofemoral osteophytosis. No erosion or periosteal change. Vascular calcification. IMPRESSION: Mild right knee osteoarthritis. Reviewed, dictated and finalized at location K.
--- OUTSIDE RECORDS SUMMARY | 2025-01-12 15:29 | XMS_ITS | Clinical Summary ---
Author Organization [facility] Address [address] [place] [address] Care Team Providers Care Investment Executive Name Role Phone Rigoberto Victoria MD Primary Care Provider [phone] Source Comments [facility],non-owned Affiliates and Associated Physician Practices is amultiple site organization consisting of ambulatory clinics and hospital sitesin [place], [place], [place] and [place]. This disclosure is being madepursuant to the Care Everywhere program and may not contain all information available regarding this patient. Last updated 18.[facility] Allergies No known active allergies Medications * Be aware that medications may not be up to date on this document. Alwaysverify current medications with the patient. Aspirin EC 81 MG Act grady ciprofloxacin (CIPRO) 500 MG tablet Active citalopram (CELEXA) 20 MG tablet 07/24/2019 Active famotidine (PEPCID) 20 MG tablet Active glipiZIDE (GLUCOTROL) 10 MG tablet Active lisinopril (PRINIVIL; ZESTRIL) 20 MG tablet Active metFORMIN (GLUCOPHAGE) 500 MG tablet Active Dickerson-3 Fatty Acids (FISH OIL) 1000 MG capsule Acti ve polyethylene glycol (NULYTELY) 420 g solution MIX AND DRINK UTD 08/26/2019 Active simvastatin (ZOCOR) 20 MG tablet Active Active Problems No known active problems Social History Tobacco Use Types Packs/Day Years Used Date Smoking Tobacco: Never Smokeless Tobacco: Never Alcohol Use Standard Drinks/Week Comments Never 0 (1 standard drink = 0.6 oz pur e alcohol) AUDIT-C Answer Date Recorded Frequency of Alcohol Consumption Never 08/08/2019 Average Number of Drinks Not on file 019 Frequency of Binge Drinking Not on file 07/14 Sex and Gender Information Value Date Recorded Sex Assigned at Not on file Legal Sex Male 9:29 PM PROGRAM ADMINISTRATOR Gender Identity Not on file Sexual Orientation Not on file Last Filed Vital Signs Vital Sign Reading Time Taken Comments Blood Pressure 115/63 10/02/2019 1:14 PM PROGRAM ADMINISTRATOR Pulse 58 10/02/2019 1:14 PM PROGRAM ADMINISTRATOR Temperature 36.6 C (97.9 F) 10/02/2019 1:14 PM PROGRAM ADMINISTRATOR Respiratory Rate 20 10/02/2019 1:14 PM PROGRAM ADMINISTRATOR Oxygen Saturation 98% 10/02/2019 1:14 PM PROGRAM ADMINISTRATOR Inhaled Oxygen Concentration - - Weight 66.7 kg (147 lb) 10/02/2019 1:14 PM PROGRAM ADMINISTRATOR Height 167.6 cm (5' 6) 10/02/2019 1:14 PM PROGRAM ADMINISTRATOR Body Mass Index 23.73 10/02/2019 1:14 PM PROGRAM ADMINISTRATOR Plan of Treatment Health Maintenance Due Date Last Done Comments DTAP/TDAP/TD VACCINES (1 - Tdap) 12[birth year]08/1964 PNEUMOCOCCAL VACCINE 50+ (1 of 1 - PCV) 1994 ZOSTER VACCINE (1 of 2) 1994 Respiratory Syncytial Virus (RSV) Vaccine Pt: or over 60 yrs (1 - 1-dose 75+ series) 12/08/2019 COVID-19 VACCINE ( - 2023-2 5 season) 2024 DEPRESSION SCREENING 08/13/2024 INFLUENZA VACCINE (Season Ended) 2025 HEPATITIS B VACCINE Aged Out No longe r eligible based on patient's age to complete this topic HIB VACCINE Aged Out No longer eligi ble based on patient's age to complete this topic HPV VACCINE Aged Out No longer eligi ble based on patient's age to complete this topic MENINGOCOCCAL (Group B) VACC INE SHARED DECISION-MAKING Aged Out No longer eligibl e based on patient's age to complete this topic MENINGOCOCCAL GROUPS A/C/Y/W VACCINE Aged Out No longer eligible b ased on patient's age to complete this topic Care Teams Investment Executive Relationship Specialty Start Date End Date Rigoberto Victoria MD [address] [place] [address] PCP - General 09/22/19
--- OUTSIDE RECORDS SUMMARY | 2025-01-12 15:29 | XMS_ITS | Clinical Summary ---
Author Organization [facility] Address [address] [address] Phone Care Team Providers Care Cross Tie Cutter Name Role Phone Rigoberto Victoria MD Primary Care Provider [phone] Allergies No known active allergies Medications aspirin (ST QUETA) 81 MG EC tablet Active citalopram (CeleXA) 20 MG tablet 07/24/2019 Active famotidine (PEPCID) 20 MG tablet 05/09/2021 Active lisinopril (PRINIVIL) 20 MG tablet Active metFORMIN (GLUCOPHAGE) 500 MG tablet 04/25/2021 Active omega-3 (FISH OIL) 1000 MG capsule Acti ve simvastatin (ZOCOR) 20 MG tablet Active Active Problems Problem Noted Date Diagnosed Date Stage 3a chronic kidney disease 05/11/2021 Essential hypertension 05/11/2021 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 Family History Medical History Relation Comments Kidney disease Neg Hx Social History Tobacco Use Types Packs/Day Years Used Date Smoking Tobacco: Never Smokeless Tobacco: Never Alcohol Use Standard Drinks/Week Comments Not Currently 0 (1 standard drink = 0.6 oz pur e alcohol) Sex and Gender Information Value Date Recorded Sex Assigned at Not on file Legal Sex Male 10:56 AM MDT Gender Identity Not on file Sexual Orientation Not on file Last Filed Vital Signs Vital Sign Reading Time Taken Comments Blood Pressure 122/58 05/11/2021 11:38 AM CDT Pulse 60 05/11/2021 11:38 AM CDT Temperature 37.2 C (98.9 F) 05/11/2021 11:38 AM CDT Respiratory Rate - - Oxygen Saturation - - Inhaled Oxygen Concentration - - Weight 66.2 kg (146 lb) 05/11/2021 11:38 AM CDT Height 170.2 cm (5' 7) 05/11/2021 11:38 AM CDT Body Mass Index 22.87 05/11/2021 11:38 AM CDT Plan of Treatment Health Maintenance Due Date Last Done Comments Pneumococcal PPSV23/PCV13 65 + Years / Low and Medium Risk (1 of 4 - PCV) 1994 Influenza Vaccine (Season Ended) 2025 Insurance MEDICARE ADVANTAGE Care Teams Cross Tie Cutter Relationship Specialty Start Date End Date Rigoberto Victoria MD [address] [place] [id number] PCP - General Internal Medicine 03/21/21
--- OUTSIDE RECORDS SUMMARY | 2025-01-12 15:29 | XMS_ITS | Continuity of Care Document ---
Author Organization [facility] Address [address] [place] [address] [address] [place] [address] Phone Care Team Providers Care Water Conservationist Name Role Phone Epifanio Fajardo Unavailable Unavailable Procedures Procedure Date Office/outpatient Visit, Est Eye Exam, New Patient Advance Directives Directive Yes / No Effective Date File Name No Information Encounters Encounter Description Practice Location Reason(s) For Visit Diagnoses Date Provider Providers Copied on Encounter Office/outpat ient Visit, Est [facility], [address] [place] [address] [address], [place], [place], [id number], tel:[phone] [facility] No Information [address]. [address] [facility] , [address], [place], [place], [facility], . tel:[phone] [facility], [address] [place] [address] [address], [place], [place], [id number], tel:[phone] [facility] No Information [address]. [address] [facility] [address], [address], [place], [address], [place]. tel:[phone] Family History Family Member Type Diagnosis Age At Onset No Information Payers Payer name Insurance type Covered republican ID Authoriza tisharlene(s) [facility] CI [id number] Social History Type Description Quantity Date Captured Comments Sex Male Smoking Status No Information Chief Complaint And Reason For Visit No Information Reason For Referral Reason For Referral No Information History Of Present Illness Encounter Date Complaint History Of Prese nt Illness No Information Functional Status Date Functional Assessmen t No Information Instructions Date Instruction Additional Infor mation No Information Assessments Type Assessment Date No Information Patient Care Teams Name Effective Dates (start - stop) Status Members No Information
--- OUTSIDE RECORDS SUMMARY | 2025-01-12 15:30 | XMS_ITS | CONTINUITY OF CARE DOCUMENT ---
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 Jeanette eLe MD DYSLIPIDEMIA-LAB PER DR. BURGER active ? Yonathan Lee MD CHEST PAIN-11/21 NUC NL active ? Jeanette Lee MD CAD-03/16 CAROTID NEG active ? Jeanette Lee MD HTN- 12/18 ECHO EF 50 active ? Jeanette Lee MD DIABETES MELLITUS, TYPE II, CONTROLLED W/ VASCULAR COMPLICATIONS active ? 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 PET[place] PAIN-11/21 NUC NLCAD-03/16 CAROTID NEGHTN- 12/18 ECHO EF 50 - In-person encounter Office Visit Jeanette Lee MD [facility] VITAL SIGNS Date Observation Value Provider blood pressure, diastolic 63 mm[Hg] [place] blood pressure, systolic 105 mm[Hg] Billy janelarvin Kodi pulse rate 61 /min Sara Mariee oxygen saturation, oximetry 99 % Sara Mariee respiratory rate E&M 16 /min Sara Mariee weight E&M 140 [lb_av] Sara Mariee weight E&M 146 [lb_av] Rose Mary Pichardo blood pressure, diastolic 53 mm[Hg] Madan Pichardo blood pressure, systolic 94 mm[Hg] Ann Pichardo oxygen saturation, oximetry 99 % Rose Mary Pichardo pulse rate 69 /min Rose Mary York respiratory rate E&M 16 /min Rose Mary robles blood pressure, diastolic 59 mm[Hg] Jose Workman RN blood pressure, systolic 99 mm[Hg] Kalpesh Workman RN pulse rate 67 /min Kalpesh Workman RN oxygen saturation, oximetry 98 % Kalpesh Workman RN respiratory rate E&M 16 /min Kalpesh goodman RN weight E&M 152 [lb_av] Kalpesh Workman RN Body Mass Index (Ratio) 23.50 kg/m2 Yonathan Lee MD height E&M 68 [in_i] Jeanette Lee MD blood pressure, diastolic, left arm 57 mm [Hg] Khai Sepulveda blood pressure, systolic, left arm 92 mm[ Hg] Khai Sepulveda blood pressure, diastolic, right arm 54 m m[Hg] Khai Sepulveda blood pressure, systolic, right arm 87 mm [Hg] Khai Sepulveda pulse rate 70 /min Khai Sepulveda oxygen saturation, oximetry 98 % Khai Sepulveda respiratory rate E&M 18 /min Khai lizama weight E&M 154 [lb_av] Khai Sepulveda ALLERGIES No Known Drug Allergies RESULTS Date Observation Value Provider Reference Range Interpretation Location globulins, serum, total 3.1 g/dL [facility] Estimated Glomerular Filtration Rate (calc) 89 mL/min/{1 .73_m2} [facility] albumin/globulin ratio, serum 1.1 [facility] protein, total, serum 7.4 g/dL [facility] albumin, serum 4.3 g/dL [facility] bilirubin, serum, total 1.1 mg/dL [facility] alkaline phosphatase, serum 104 1/L [facility] alanine aminotransferase (SGPT), serum 18 1/L [facility] aspartate aminotransferase (SGOT), serum 19 1/L [facility] calcium, serum 9.4 mg/dL [facility] blood glucose, fasting 130 mg/dL [facility] creatinine, serum 0.90 mg/dL [facility] urea nitrogen, blood 15 mg/dL [facility] carbon dioxide, serum, total 27 mmol/L [facility] chloride, serum 101 mmol/L [facility] potassium, serum 4.6 mmol/L [facility] sodium, serum 138 mmol/L [facility] hemoglobin A1C, blood, as % of total hemoglobin 7.0 % [facility] cholesterol/HDL ratio, serum 2.4 [facility] triglyceride, serum, fasting 53 mg/dL [facility] HDL cholesterol, serum 51 mg/dL [facility] LDL cholesterol, serum 62 mg/dL [facility] cholesterol, serum 124 mg/dL [facility] prostate specific antigen 1.7 ng/mL [facility] Estimated Glomerular Filtration Rate (calc) >60 [facility] albumin/globulin ratio, serum 1.4 [facility] protein, total, serum 8.0 g/dL [facility] albumin, serum 4.6 g/dL [facility] bilirubin, serum, total 1.4 mg/dL [facility] alkaline phosphatase, serum 112 1/L [facility] alanine aminotransferase (SGPT), serum 22 1/L [facility] aspartate aminotransferase (SGOT), serum 22 1/L [facility] calcium, serum 9.9 mg/dL [facility] blood glucose, fasting 159 mg/dL [facility] creatinine, serum 0.99 mg/dL [facility] urea nitrogen, blood 19 mg/dL [facility] chloride, serum 101 mmol/L [facility] potassium, serum 4.5 mmol/L [facility] sodium, serum 138 mmol/L [facility] hemoglobin A1C, blood, as % of total hemoglobin 6.8 % [facility] cholesterol/HDL ratio, serum 2.3 [facility] triglyceride, serum, fasting 58 mg/dL [facility] HDL cholesterol, serum 61 mg/dL [facility] LDL cholesterol, serum 70 mg/dL [facility] cholesterol, serum 142 mg/dL [facility] albumin/creatinine ratio, urine 5 mg/g{crea t} [facility] microalbumin/total urine volume 0.7 mg/L [facility] creatinine, random, urine 148 mg/dL [facility] cholesterol/HDL ratio, serum 2.5 [facility] triglyceride, serum, fasting 49 mg/dL [facility] HDL cholesterol, serum 52 mg/dL [facility] LDL cholesterol, serum 66 mg/dL [facility] cholesterol, serum 128 mg/dL [facility] hemoglobin A1C, blood, as % of total hemoglobin 5.9 % [facility] albumin/globulin ratio, serum 1.4 [facility] protein, total, serum 7.4 g/dL [facility] albumin, serum 4.3 g/dL [facility] bilirubin, serum, total 1.0 mg/dL [facility] alkaline phosphatase, serum 118 1/L [facility] alanine aminotransferase (SGPT), serum 23 1/L [facility] aspartate aminotransferase (SGOT), serum 20 1/L [facility] calcium, serum 9.6 mg/dL [facility] blood glucose, fasting 154 mg/dL [facility] creatinine, serum 0.97 mg/dL [facility] urea nitrogen, blood 17 mg/dL [facility] carbon dioxide, serum, total 27 mmol/L [facility] chloride, serum 105 mmol/L [facility] potassium, serum 4.6 mmol/L [facility] sodium, serum 139 mmol/L [facility] Estimated Glomerular Filtration Rate (calc) >60 [facility] globulins, serum, total 2.9 g/dL [facility] albumin/globulin ratio, serum 1.6 [facility] protein, total, serum 7.4 g/dL [facility] albumin, serum 4.5 g/dL [facility] bilirubin, serum, total 1.1 mg/dL [facility] alkaline phosphatase, serum 115 1/L [facility] alanine aminotransferase (SGPT), serum 18 1/L [facility] aspartate aminotransferase (SGOT), serum 18 1/L [facility] calcium, serum [facility], serum 0.98 [facility] urea nitrogen, blood 20 mg/dL [facility] carbon dioxide, serum, total 28 mmol/L [facility] chloride, serum 104 mmol/L [facility] potassium, serum 4.5 mmol/L [facility] sodium, serum 139 mmol/L [facility] blood glucose, fasting 124 mg/dL [facility] hemoglobin A1C, blood, as % of total hemoglobin 6.9 % [facility] cholesterol/HDL ratio, serum 2.4 [facility] triglyceride, serum, fasting 49 mg/dL [facility] HDL cholesterol, serum 54 mg/dL [facility] LDL cholesterol, serum 66 mg/dL [facility] cholesterol, serum 130 mg/dL [facility] prostate specific antigen 1.7 ng/mL [facility] HISTORY OF MEDICATION USE Medication Status Instructions Dates Provider Indications Com ments LOVASTATIN 40 MG ORAL TABLET active ONE TAB. DAILY Jeanette Lee MD LISINOPRIL 20 MG ORAL TABLET active ONE TAB. twice daily Sara Mariee OMEGA-3 CAPSULE active Lory Boone NIASPAN TABLET EXTENDED RELEASE active 1 gm daily Lory Boone EQ ASPIRIN TABLET active 325 mg Lory Boone GLUCOTROL XL 2.5 MG ORAL TABLET EXTENDED RELEASE 24 HOUR active daily Lory Boone SOCIAL HISTORY Date Observation Value Provider social history reviewed E&M reviewed Jeanette Lee MD social history reviewed E&M reviewed Jeanette Lee MD social history E&M Marital Statu s: Single L abelardo with family/friends E thnicity: Other Kalpesh Workman RN social history reviewed E&M reviewed Kalpesh Workman RN physical exercise, f requency, days per week yes Jeanette Lee MD drug use none Jeanette Lee MD alcohol use, average drinks per day none Jeanette Lee MD smoking status Non-Smoker Jeanette Lee MD social history reviewed E&M reviewed Jeanette Lee MD physical exercise, f requency, days per week yes [employer] caffeine use, averag e drinks per day yes [employer] alcohol use, average drinks per day none [employer] smoking status Non-smoker [facility] MENTAL STATUS Date Observation Value Provider assessment of judgme nt and insight E&M Alert and oriented to time, place and person. Mood and affect are normal. Jeanette Lee MD assessment of judgme nt and insight E&M Alert and oriented to time, place and person. Mood and affect are normal. Jeanette Lee MD assessment of judgme nt and insight E&M Alert and oriented to time, place and person. Mood and affect are normal. Jeanette Lee MD assessment of judgme nt and insight E&M Alert and oriented to time, place and person. Mood and affect are normal. Jeanette eLe MD INSURANCE PROVIDERS Payer name Policy type / Coverage type [facility] alliance party ID COVENTRY- OPEN ACCESS/PPO Other [id number] TREATMENT PLAN Date Name Performer : H is updated medication list for this problem includes: Niaspan Tbcr (Niacin (antihyperlipidemic) tbcr) ..... 1 gm daily Lovastatin 40 Mg Tabs (Lovastatin) ..... One tab. daily & #13;BP today: 105/63 Prior BP: 94/53 (04/11/2010) C HOL: 124 (11/14/2010) LDL: 62 (11/14/2010) HDL: 51 (11/14/2010) T (11/14/2010) Jeanette Lee MD : H is updated medication list for this problem includes: Glucotrol Xl 2.5 Mg Tb24 (Glipizide) ..... Daily Eq Aspirin Tabs (Aspirin tabs) ..... 325 mg Lisinopril 20 Mg Tabs (Lisinopril) ..... One tab. twice daily BP today: 105/63 Prior BP: 94/53 (04/11/2010) Labs Reviewed: H gBA1c: 7.0 (11/14/2010) Creat: 0.90 (11/14/2010) Microalbumin: 0.7 (03/21/2010) Jeanette Lee MD : H is updated medication list for this problem includes: Eq Aspirin Tabs (Aspirin tabs) ..... 325 mg Lisinopril 20 Mg Tabs (Lisinopril) ..... One tab. twice daily BP today: 105/63 Prior BP: 94/53 (04/11/2010) N uclear Stress Findings: 1. Normal Harshil protocol exercise tolerance test. 2 . Normal left ventricular size and function with a calculated ejection fraction of 60%. 3 . Myocardial scintigraphy is normal without evidence for previous myocardial infarction or reversible ischemia. GC (10/19/2010) C ardiac Cath: 90 % distal lmain, 80% ostial lad, 99% ostial circumflex, nl rca (12/23/2003) C arotid Doppler/Duplex: normal: (03/23/2004) C HOL: 124 (11/14/2010) LDL: 62 (11/14/2010) HDL: 51 (11/14/2010) T (11/14/2010) B UN: 15 (11/14/2010) Creat: 0.90 (11/14/2010) Glucose: 130 (11/14/2010) N a+: 138 (11/14/2010) K+: 4.6 (11/14/2010) Cl: 101 (11/14/2010) Echocardiogram: Left ventricular systolic function is at the lower limits of normal. Normal left ventricular size. Normal left ventricular wall thickness. Mitral inflow Doppler demonstrates pseudonormal pattern consistent with diastolic dysfunction. Normal E/E` 10.0. Left ventricular ejection fraction is estimated at 50%. There is mild enlargement of the left atrium. There is mild enlargement of right atrium. Normal pericardium with no pericardial or pleural effusion. . Normal aortic root size. No significant valvular abnormalities. GCO (10/10/2010) Jeanette Lee MD : H is updated medication list for this problem includes: Eq Aspirin Tabs (Aspirin tabs) ..... 325 mg Lisinopril 20 Mg Tabs (Lisinopril) ..... One tab. twice daily BP today: 105/63 P rior BP: 94/53 (04/11/2010) Labs Reviewed: C reat: 0.90 (11/14/2010) C hol: 124 (11/14/2010) HDL: 51 (11/14/2010) LDL: 62 (11/14/2010) T (11/14/2010) Jeanette Lee MD f/u: H is updated medication list for this problem includes: Eq Aspirin Tabs (Aspirin tabs) ..... 325 mg Niaspan Tbcr (Niacin (antihyperlipidemic) tbcr) ..... 1 gm daily Lisinopril 20 Mg Tabs (Lisinopril) ..... One tab. daily Lovastatin 40 Mg Tabs (Lovastatin) ..... One tab. daily BP today: 94/53 Prior BP: 99/59 (12/28/2008) N uclear Stress Findings: Normal Harshil protocol exercise tolerance test. 2 . Normal left ventricular size and function with a calculated ejection fraction of 59%%. 3 . There is a fixed defect involving the inferolateral wall consistent with scar tissue. (12/23/2007) C ardiac Cath: 90 % distal lmain, 80% ostial lad, 99% ostial circumflex, nl rca (12/23/2003) C arotid Doppler/Duplex: normal: (03/23/2004) C HOL: 128 (03/21/2010) LDL: 66 (03/21/2010) HDL: 52 (03/21/2010) T (03/21/2010) B UN: 17 (03/21/2010) Creat: 0.97 (03/21/2010) Glucose: 154 (03/21/2010) N a+: 139 (03/21/2010) K+: 4.6 (03/21/2010) Cl: 105 (03/21/2010) Jeanette Lee MD f/u: H is updated medication list for this problem includes: Eq Aspirin Tabs (Aspirin tabs) ..... 325 mg Lisinopril 20 Mg Tabs (Lisinopril) ..... One tab. daily BP today: 94/53 Prior BP: 99/59 (12/28/2008) B UN: 17 (03/21/2010) Creat: 0.97 (03/21/2010) Glucose: 154 (03/21/2010) N a+: 139 (03/21/2010) K+: 4.6 (03/21/2010) Cl: 105 (03/21/2010) Calcium: 9.6 (03/21/2010) Nuclear Stress Findings: Normal Harshil protocol exercise tolerance test. 2 . Normal left ventricular size and function with a calculated ejection fraction of 59%%. 3 . There is a fixed defect involving the inferolateral wall consistent with scar tissue. (12/23/2007) E chocardiogram: Conclusions: The left ventricular chamber size is normal. Normal left ventricular wall thickness. Mild global left v entricular dysfunction with abnormal septal motion. LV EF is estimated at 50%. T he right ventricle is normal in size. The right ventricle has normal systolic function. Mild left atrial enlargement. T he Mitral Valve is structurally normal and appears to open and close adequately. There is trace mitral valve r egurgitation. The aortic valve appears structurally normal. There is no evidence of aortic insufficiency.The tricuspid v alve is structurally normal. There is trace tricuspid regurgitation. The right ventricular systolic pressure (RSVP) is e stimated to be 20 mmHg and is within normal limits. (12/23/2007) C ardiac Cath: 90 % distal lmain, 80% ostial lad, 99% ostial circumflex, nl rca (12/23/2003) Jeanette Lee MD f/u: H is updated medication list for this problem includes: Eq Aspirin Tabs (Aspirin tabs) ..... 325 mg Lisinopril 20 Mg Tabs (Lisinopril) ..... One tab. daily BP today: 94/53 Prior BP: 99/59 (12/28/2008) Labs Reviewed: C reat: 0.97 (03/21/2010) C hol: 128 (03/21/2010) HDL: 52 (03/21/2010) LDL: 66 (03/21/2010) T (03/21/2010) Jeanette Lee MD f/u: H is updated medication list for this problem includes: Eq Aspirin Tabs (Aspirin tabs) ..... 325 mg Niaspan Tbcr (Niacin (antihyperlipidemic) tbcr) ..... 1 gm daily Lisinopril 20 Mg Tabs (Lisinopril) ..... One tab. daily Lovastatin 40 Mg Tabs (Lovastatin) ..... One tab. daily BP today: 94/53 Prior BP: 99/59 (12/28/2008) N uclear Stress Findings: Normal Harshil protocol exercise tolerance test. 2 . Normal left ventricular size and function with a calculated ejection fraction of 59%%. 3 . There is a fixed defect involving the inferolateral wall consistent with scar tissue. (12/23/2007) C ardiac Cath: 90 % distal lmain, 80% ostial lad, 99% ostial circumflex, nl rca (12/23/2003) C arotid Doppler/Duplex: normal: (03/23/2004) C HOL: 128 (03/21/2010) LDL: 66 (03/21/2010) HDL: 52 (03/21/2010) T (03/21/2010) B UN: 17 (03/21/2010) Creat: 0.97 (03/21/2010) Glucose: 154 (03/21/2010) N a+: 139 (03/21/2010) K+: 4.6 (03/21/2010) Cl: 105 (03/21/2010) Jeanette Lee MD routine: H is updated medication list for this problem includes: Glucotrol Xl 2.5 Mg Tb24 (Glipizide) ..... Daily Eq Aspirin Tabs (Aspirin tabs) ..... 325 mg Lisinopril 20 Mg Tabs (Lisinopril) ..... One tab. daily BP today: 99/59 Prior BP: / () Jeanette Lee MD routine: H is updated medication list for this problem includes: Niaspan Tbcr (Niacin (antihyperlipidemic) tbcr) ..... 1 gm daily Zocor 20 Mg Tabs (Simvastatin) ..... One tab. at bedtime BP today: 99/59 Prior BP: / () Jeanette Lee MD routine: H is updated medication list for this problem includes: Eq Aspirin Tabs (Aspirin tabs) ..... 325 mg Lisinopril 20 Mg Tabs (Lisinopril) ..... One tab. daily BP today: 99/59 Prior BP: / () N uclear Stress Findings: Normal Harshil protocol exercise tolerance test. 2 . Normal left ventricular size and function with a calculated ejection fraction of 59%%. 3 . There is a fixed defect involving the inferolateral wall consistent with scar tissue. (12/23/2007) E chocardiogram: Conclusions: The left ventricular chamber size is normal. Normal left ventricular wall thickness. Mild global left v entricular dysfunction with abnormal septal motion. LV EF is estimated at 50%. T he right ventricle is normal in size. The right ventricle has normal systolic function. Mild left atrial enlargement. T he Mitral Valve is structurally normal and appears to open and close adequately. There is trace mitral valve r egurgitation. The aortic valve appears structurally normal. There is no evidence of aortic insufficiency.The tricuspid v alve is structurally normal. There is trace tricuspid regurgitation. The right ventricular systolic pressure (RSVP) is estimated to be 20 mmHg and is within normal limits. (12/23/2007) C ardiac Cath: 90 % distal lmain, 80% ostial lad, 99% ostial circumflex, nl rca (12/23/2003) Jeanette Lee MD routine: H is updated medication list for this problem includes: Eq Aspirin Tabs (Aspirin tabs) ..... 325 mg Lisinopril 20 Mg Tabs (Lisinopril) ..... One tab. daily BP today: 99/59 Jeanette Lee MD routine: H is updated medication list for this problem includes: Eq Aspirin Tabs (Aspirin tabs) ..... 325 mg Niaspan Tbcr (Niacin (antihyperlipidemic) tbcr) ..... 1 gm daily Lisinopril 20 Mg Tabs (Lisinopril) ..... One tab. daily Zocor 20 Mg Tabs (Simvastatin) ..... One tab. at bedtime BP today: 99/59 Prior BP: / () N uclear Stress Findings: Normal Harshil protocol exercise tolerance test. 2 . Normal left ventricular size and function with a calculated ejection fraction of 59%%. 3 . There is a fixed defect involving the inferolateral wall consistent with scar tissue. (12/23/2007) C ardiac Cath: 90 % distal lmain, 80% ostial lad, 99% ostial circumflex, nl rca (12/23/2003) C arotid Doppler/Duplex: normal: (03/23/2004) Jeanette Lee MD routine: H is updated medication list for this problem includes: Eq Aspirin Tabs (Aspirin tabs) ..... 325 mg Lisinopril 20 Mg Tabs (Lisinopril) ..... One tab. daily BP today: 99/59 Prior BP: / () N uclear Stress Findings: Normal Harshil protocol exercise tolerance test. 2 . Normal left ventricular size and function with a calculated ejection fraction of 59%%. 3 . There is a fixed defect involving the inferolateral wall consistent with scar tissue. (12/23/2007) C ardiac Cath: 90 % distal lmain, 80% ostial lad, 99% ostial circumflex, nl rca (12/23/2003) C arotid Doppler/Duplex: normal: (03/23/2004) E chocardiogram: Conclusions: The left ventricular chamber size is normal. Normal left ventricular wall thickness. Mild global left v entricular dysfunction with abnormal septal motion. LV EF is estimated at 50%. T he right ventricle is normal in size. The right ventricle has normal systolic function. Mild left atrial enlargement. T he Mitral Valve is structurally normal and appears to open and close adequately. There is trace mitral valve r egurgitation. The aortic valve appears structurally normal. There is no evidence of aortic insufficiency.The tricuspid v alve is structurally normal. There is trace tricuspid regurgitation. The right ventricular systolic pressure (RSVP) is e stimated to be 20 mmHg and is within normal limits. (12/23/2007) Jeanette Lee MD routine: H is updated medication list for this problem includes: Eq Aspirin Tabs (Aspirin tabs) ..... 325 mg Niaspan Tbcr (Niacin (antihyperlipidemic) tbcr) ..... 1 gm daily Lisinopril 20 Mg Tabs (Lisinopril) ..... One tab. daily Zocor 20 Mg Tabs (Simvastatin) ..... One tab. at bedtime BP today: 99/59 Prior BP: / () N uclear Stress Findings: Normal Harshil protocol exercise tolerance test. 2 . Normal left ventricular size and function with a calculated ejection fraction of 59%%. 3 . There is a fixed defect involving the inferolateral wall consistent with scar tissue. (12/23/2007) C ardiac Cath: 90 % distal lmain, 80% ostial lad, 99% ostial circumflex, nl rca (12/23/2003) C arotid Doppler/Duplex: normal: (03/23/2004) Jeanette Lee MD routine: H is updated medication list for this problem includes: Niaspan Tbcr (Niacin (antihyperlipidemic) tbcr) ..... 1 gm daily Zocor 20 Mg Tabs (Simvastatin) ..... One tab. at bedtime BP today: 99/59 Prior BP: / () Jeanette Lee MD : H is updated medication list for this problem includes: Glucotrol Xl 2.5 Mg Tb24 (Glipizide) ..... Daily Eq Aspirin Tabs (Aspirin tabs) ..... 325 mg Lisinopril 5 Mg Tabs (Lisinopril) ..... Daily Jeanette Lee MD : H is updated medication list for this problem includes: Niaspan Tbcr (Niacin (antihyperlipidemic) tbcr) ..... 1 gm daily Zocor 20 Mg Tabs (Simvastatin) ..... One tab. at bedtime Jeanette Lee MD : H is updated medication list for this problem includes: Eq Aspirin Tabs (Aspirin tabs) ..... 325 mg Niaspan Tbcr (Niacin (antihyperlipidemic) tbcr) ..... 1 gm daily Lisinopril 5 Mg Tabs (Lisinopril) ..... Daily Zocor 20 Mg Tabs (Simvastatin) ..... One tab. at bedtime P t had a normal stress test Echo: Conclusions: The left ventricular chamber size is normal. Normal left ventricular wall thickness. Mild global left v entricular dysfunction with abnormal septal motion. LV EF is estimated at 50%. T he right ventricle is normal in size. The right ventricle has normal systolic function. Mild left atrial enlargement. T he Mitral Valve is structurally normal and appears to open and close adequately. There is trace mitral valve r egurgitation. The aortic valve appears structurally normal. There is no evidence of aortic insufficiency.The tricuspid v alve is structurally normal. There is trace tricuspid regurgitation. The right ventricular systolic pressure (RSVP) is e stimated to be 20 mmHg and is within normal limits. (12/23/2007) C ardiac Cath: 90 % distal lmain, 80% ostial lad, 99% ostial circumflex, nl rca (12/23/2003) C arotid Doppler/Duplex: normal: (03/23/2004) Orders: C omplete Echo (CPT-61836) C arotid Duplex Bilateral ([id number]) Jeanette Lee MD Date Name Carotid Duplex Bilat eral Complete Echo HISTORY OF PROCEDURES Procedure Date Procedure Name Provider Procedure Notes S tatus EKG Jeanette Lee MD completed
== END 2025-01-12 15:19 | disposition home or self-care (01) ==
LOC: ANHIMG 15:21
PROVIDERS: PCP Family Medicine; Visit Provider Registered Nurse
DX: M17.0 Bilateral primary osteoarthritis of knee (principal); M25.462 Effusion, left knee
CPT/HCPCS: 73564